=== PATIENT | female | born 1950 | race Caucasian/White ===

== ENCOUNTER 2019-12-30 13:50 | Outpatient (CLI) | payer MEDICARE, SELFPAY ==
--- NOTE | ~2019-12-30 | DEXA_ITS ---
Bone Density Report Name: Alondra Rose Age: 69 Sex: Female Ethnicity: White Date of : 1950 Indication: osteopenia; height loss; Referring Provider: VIKY COHEN Study: Bone densitometry was performed. Exam Date: December 30, 2019 Accession number: [id number] Bone Density: Region BMD T-score Z-score Classification AP Spine (L1-L4) 0.916 -1.2 0.9 Osteopenia Femoral Neck (Left) 0.628 -2.0 -0.2 Osteopenia Total Hip (Left) 0.788 -1.3 0.3 Osteopenia World Health Organization criteria for BMD impression classify patients as: Normal (T-score at or above -1.0), Osteopenia (T-score between -1.0 and -2.5), or Osteoporosis (T-score at or below -2.5). 10-year Fracture Risk(1): Major Osteoporotic Fracture 12% Hip Fracture 2.2% Reported Risk Factors: [place] (), Neck BMD=0.628, BMI=24.4 (1) FRAX(R) Version 3.08. Fracture probability calculated for an untreated patient. Fracture probability may be lower if the patient has received treatment. Previous Exams: Region Exam Age BMD T-score BMD Change BMD Change Date g/cm2 vs Baseline vs Previous AP Spine(L1-L4) 12/30/2019 69 0.916 -1.2 -0.061(-6.2%)# -0.061(-6.2%)# 06/04/2004 53 0.976 -0.6 Total Hip(Left) 12/30/2019 69 0.788 -1.3 -0.014(-1.7%)# -0.014(-1.7%)# 06/04/2004 53 0.801 -1.2 *Denotes significance at 95% confidence level, LSC for AP Spine = 0.022 g/cm2, LSC for Total Hip = 0.027 g/cm2 Clinical Information Provided by Patient: Patient maximum height was 64 Drinks caffeinated beverages Onset of menses at age 11 Number of children 2 Impression: The patient has low bone mass, based on the Left Femoral Neck T-score. The patient has an estimated ten-year risk of hip fracture of 2.2% and an estimated ten-year risk of major fracture of 12%, based on the WHO FRAX algorithm. No significant bone loss was observed. Discussion: BONE DENSITY IS LOW AT ONE OR MORE SKELETAL SITES. This patient's lowest T-score is low at one or more skeletal sites. It meets the World Health Organization's (WHO) criteria for ?low bone mass? (T-score between -1.0 and -2.5). The patient's 10-year risk of fracture as calculated by FRAX is less than the threshold where pharmacological therapy is recommended by the National Osteoporosis Foundation (NOF). However, all treatment decisions require clinical judgment and consideration of individual patient factors, including patient preferences, comorbidities, previous drug use, risk factors not captured in the FRAX model (e.g., frailty,
== END 2019-12-30 13:51 | disposition home or self-care (01) ==
PROVIDERS: PCP Internal Medicine; Visit Provider Internal Medicine
DX: Z78.0 Asymptomatic menopausal state (principal); M85.88 Other specified disorders of bone density and structure, other site; M85.852 Other specified disorders of bone density and structure, left thigh
CPT/HCPCS: 77080

== ENCOUNTER → 2021-09-08 10:16 | Outpatient (CLI) | payer MEDICARE, SELFPAY ==
--- NOTE | ~2021-09-08 | XR_ITS ---
EXAM: XR shoulder RT min 2V HISTORY: RT SHOULDER PAIN x 4 wks after over use; no known injury COMPARISON: None available FINDINGS: Decreased mineralization. No fracture or dislocation. No lytic or blastic lesion. Minimal AC joint hypertrophy. Subcortical cyst formation in the humeral head. No erosion or periosteal change . Soft tissues within normal limits. IMPRESSION: Osteopenia. No acute fracture or dislocation. Possible rotator cuff pathology. Reviewed, dictated and finalized at location K.
== END ==
PROVIDERS: PCP Internal Medicine; Visit Provider Internal Medicine
DX: M85.811 Other specified disorders of bone density and structure, right shoulder (principal)
CPT/HCPCS: 73030

== ENCOUNTER 2022-09-05 08:19 | Outpatient (CLI) | payer MEDICARE, SELFPAY ==
[2022-09-05 13:29] LABS: Hemoglobin A1C 5.3 % (<5.7)
[2022-09-05 13:34] LABS: Vitamin D 25 Hydroxy 33.4 ng/mL
[2022-09-05 15:30] LABS: Alanine Aminotransferase 30 U/L (6-35); Albumin Level 4.4 g/dL (3.5-5.1); Alkaline Phosphatase 73 U/L (38-126); Anion Gap 5 mmol/L (8-16); Aspartate Amino Transferase 40 U/L (14-36); Bilirubin,Total 0.7 mg/dL (0.2-1.3); Blood Urea Nitrogen 18 mg/dL (7-17); Calcium 8.8 mg/dL (8.4-10.2); Carbon Dioxide 28 mmol/L (22-30); Chloride 106 mmol/L (98-107); Cholesterol 184 mg/dL (0-200); Estimated Glomerular Filt Rate > 60; Glucose 108 mg/dL (65-110); HDL Direct 76 mg/dL; Sodium 139 mmol/L (137-145); Triglycerides 76 mg/dL (<150)
[2022-09-05 15:41] LABS: LDL Cholesterol Direct 77 mg/dL
== END 2022-09-05 08:20 | disposition home or self-care (01) ==
LOC: ANHGOSHLAB 08:21
PROVIDERS: PCP Family Medicine; Visit Provider Family Medicine
DX: Z13.228 Encounter for screening for other metabolic disorders (principal); Z13.29 Encounter for screening for other suspected endocrine disorder; E55.9 Vitamin D deficiency, unspecified; E78.5 Hyperlipidemia, unspecified; R73.01 Impaired fasting glucose
CPT/HCPCS: 36415; 80053; 80061; 82306; 83036; 84443

== ENCOUNTER 2024-04-01 10:17 | Outpatient (CLI) | payer MEDICARE, SELFPAY ==
[2024-04-01 11:14] LABS: Add Urine Microscopic? YES; Appearance Urine Clear (Clear); Bacteria Urine 4+ /hpf; Bilirubin Urine Negative (Negative); Blood Urine Negative (Negative); Color Urine Yellow (Yellow); Glucose Urine UA Negative (Negative); Ketones Urine Negative (Negative); Leukocyte Esterase Ur 2+ LEU/UL (Negative); Nitrate Urine Positive (Negative); Non Pathogenic Casts 0-2; Protein Urine Negative (Negative); RBC Urine 0-2 /hpf (0-2); Specific Grav Ur 1.007 (1.001-1.035); Squamous Epithelial Cell Urine None Seen /hpf (Few); Urobilinogen Urine 0.2 mg/dL (<2.0)
== END 2024-04-01 10:18 | disposition home or self-care (01) ==
LOC: ANHLAB 10:23
PROVIDERS: PCP Internal Medicine; Visit Provider Internal Medicine
DX: N39.0 Urinary tract infection, site not specified (principal); R30.0 Dysuria; R35.0 Frequency of micturition
CPT/HCPCS: 81001; 87077; 87086; 87186

== ENCOUNTER 2024-10-21 05:07 | Emergency (ER) | payer MEDICARE, SELFPAY ==
--- OUTSIDE RECORDS SUMMARY | 2024-10-21 05:09 | XMS_ITS | Clinical Summary ---
Author Organization [facility] Address [address] [place] [address] Care Team Providers Care Sample Hand Name Role Phone Saji Mooney MD Primary Care Provider [phone] Allergies Active Allergy Reactions Criticality Noted Date Comments Latex Rash Medium 04/20/2019 Medications ibuprofen (ADVIL,MOTRIN) 600 mg tablet Take 600 mg by mouth every 6 hours as needed Active simvastatin (ZOCOR) 20 mg tablet 0 9 Active aspirin 81 mg chewable tablet Take by mouth Active fluorouracil (EFUDEX) 5 % cream APPLY A SUFFICIENT AMOUNT TO COVER THE LESIONS IN AFFECTED AREA TOPICALLY BID X 2 WEEKS TO FOREARMS/DORSAL HANDS 0 9 Active Active Problems No known active problems Family History Medical History Relation Name Comments Heart disease Father Family history of cardiac disorder - (Added by TW Conv) Kidney disease Father Family histor y of kidney disease - (Added by TW Conv) Heart disease Mother Family history of cardiac disorder - (Added by TW Conv) Relation Name Status Comments Father Mother Social History Tobacco Use Types Packs/Day Years Used Date Smoking Tobacco: Never Smokeless Tobacco: Never Personal Safety Answer Date Recorded Getting School Help Needed Not on file 08/01 Comments No Sex and Gender Information Value Date Recorded Sex Assigned at Not on file Legal Sex Female 3:27 PM HOME COMPANION Gender Identity Not on file Sexual Orientation Not on file Obstetrics History Para Term AB IAB SAB Ectopic Multiple Livin g Live Births 2 2 2 Date Outcome GA Total Labor Labor/2nd/3rd Weight Sex Type Anes PTL Latonia A1 A5 Name Clin Term Term Last Filed Vital Signs Vital Sign Reading Time Taken Comments Blood Pressure - - Pulse - - Temperature - - Respiratory Rate - - Oxygen Saturation - - Inhaled Oxygen Concentration - - Weight 61.2 kg (135 lb) 05/09/2020 7:57 AM HOME COMPANION Height 161.3 cm (5' 3.5) 05/09/2020 7:57 AM HOME COMPANION Body Mass Index 23.54 05/09/2020 7:57 AM HOME COMPANION Plan of Treatment Not on file Insurance MEDICARE ADVANTAGE MEDICARE ADVANTAGE [employer] MEDICARE Care Teams Sample Hand Relationship Specialty Start Date End Date Saji Mooney MD [address] [place] [address] PCP - General Internal Medicine 04/20/19
--- OUTSIDE RECORDS SUMMARY | 2024-10-21 05:09 | XMS_ITS | Encounter Summary ---
Author Organization [facility] Address [address] [place] [address] Care Team Providers Care Paperboard Boxes Estimator Name Role Phone Ab Weiss DO Primary Care Provider [phone] Encounter Details Date Type Department Care Team (Latest Contact Info) Description 10/25/2005 Outpatient Historical [facility] Cochran, Tony Red MD NO ADDRESS ON FILE Diarrhea (Primary Dx) Social History Tobacco Use Types Packs/Day Years Used Date Smoking Tobacco: Never Assessed Comments Unknown Sex and Gender Information Value Date Recorded Sex Assigned at Female 05/03/2024 8:25 AM HEALTHCARE RISK CONTROL CONSULTANT Legal Sex Female 3:31 AM HEALTHCARE RISK CONTROL CONSULTANT Gender Identity Female 05/03/2024 8:25 AM HEALTHCARE RISK CONTROL CONSULTANT Sexual Orientation Not on file documented as of this encounter Plan of Treatment Not on file documented as of this encounter Procedures Procedure Name Priority Date/Time Associated Diagnosis Comments CBC WITH DIFFERENTIAL Routine 10/25/2005 11:01 AM CDT CBC WITH DIFFERENTIAL Routine 10/25/2005 11:01 AM CDT URINALYSIS W/REFLEX MICROSCOPIC Routine 10/25/2005 11:01 AM CDT SEDIMENTATION RATE Routine 10/25/2005 11 :01 AM CDT TSH Routine 10/25/2005 11:01 AM CDT LIPID PANEL Routine 10/25/2005 11:01 AM CDT COMPREHENSIVE METABOLIC PANEL Routine 10/25/2005 11:01 AM CDT documented in this encounter Results * (ABNORMAL) URINALYSIS (10/25/2005 11:01 AM CDT) COLOR UA Yellow INTERFACE SYSTEM CLARITY UA Slt. Cloudy(A) Clear INTERFACE SYSTEM SPECIFIC GRAVITY UA 1.015 1.001 - 1.035 INTERFACE SYSTEM PH UA 7.0 5.0 - 8.0 INTERFACE SYSTEM LEUKOCYTE ESTERASE UA Negative Negative INTERFACE SYSTEM NITRITE UA Negative Negative INTERFACE SYSTEM PROTEIN UA Negative Negative INTERFACE SYSTEM GLUCOSE UA Negative Negative INTERFACE SYSTEM KETONES UA Negative Negative INTERFACE SYSTEM UROBILINOGEN UA <1 <=1 mg/dL INTE RFACE SYSTEM BILIRUBIN UA Negative Negative INTERFA CE SYSTEM BLOOD UA Negative Negative INTERFACE SYSTEM WBC UA 1 0 - 5 /HPF INTERFACE SYSTEM RBC UA <1 0 - 4 /HPF INTERFACE SYSTEM BACTERIA UA 1+(A) None Seen /HPF INTERFACE SYSTEM EPITHELIAL CELLS, URINE 2-5 /HPF INTERFACE SYSTEM AMORPHOUS CRYSTAL Rare /HPF INTERFACE SYSTEM 10/25/2005 11:0 1 AM CDT us Tony Cochran MD URINE ORDERABLES Final Res ult INTERFACE SYSTEM Refer to clinic/hospital department * CBC WITH DIFFERENTIAL (10/25/2005 11:01 AM CDT) NEUTROPHILS 61 45 - 70 % INTERFAC E SYSTEM LYMPHOCYTES 30 16 - 45 % INTERFAC E SYSTEM MONOCYTES 6 3 - 13 % INTERFACE SYSTEM EOSINOPHILS 2 0 - 7 % INTERFAC E SYSTEM BASOPHILS 1 0 - 2 % INTERFACE SYSTEM NEUTROPHIL ABSOLUTE 3.18 1.90 - 7.00 K/uL INTERFACE SYSTEM LYMPHOCYTE ABSOLUTE 1.54 0.70 - 4.50 K/uL INTERFACE SYSTEM MONOCYTE ABSOLUTE 0.33 0.10 - 1.30 K/uL INTERFACE SYSTEM EOSINOPHIL ABSOLUTE 0.10 0.00 - 0.70 K/uL INTERFACE SYSTEM BASOPHILS ABSOLUTE 0.03 0.00 - 0.20 K/uL INTERFACE SYSTEM 10/25/2005 11:0 1 AM CDT Tony Cochran MD HEMATOLOGY ORDERABLES Mechelle l Result Performing Organization Address [facility] Phone Number INTERFACE SYSTEM Refer to clinic/hospital department * CBC WITH DIFFERENTIAL (10/25/2005 11:01 AM CDT) WBC 5.2 4.0 - 9.8 K/uL INTERFACE SYSTEM RBC 4.57 3.90 - 4.90 M/uL INTERFACE SYSTEM HEMOGLOBIN 14.3 11.8 - 14.8 g/dL INTERFACE SYSTEM HEMATOCRIT 42.2 35.5 - 44.0 % INTERFACE SYSTEM MCV 92.3 82.0 - 99.0 fL INTERFACE SYSTEM MCH 31.3 27.2 - 32.6 pg INTERFACE SYSTEM MCHC 33.9 31.5 - 35.5 % INTERFACE SYSTEM RDW 12.8 11.5 - 14.5 % INTERFACE SYSTEM RDW-STDEV 43.0 37.1 - 48.7 fL INTERFACE SYSTEM PLATELETS 234 140 - 350 K/uL INTERFACE SYSTEM MPV 10.7 9.3 - 12.4 fL INTERFACE SYSTEM 10/25/2005 11:0 1 AM CDT us Tony Cochran MD HEMATOLOGY ORDERABLES Mechelle l Result Performing Organization Address [facility] Phone Number INTERFACE SYSTEM Refer to clinic/hospital department * TSH (10/25/2005 11:01 AM CDT) TSH 1.43 0.27 - 4.20 uU/mL INTERFACE SYSTEM 10/25/2005 11:0 1 AM CDT Tony Cochran MD CHEMISTRY ORDERABLES Final Result Performing Organization Address [facility] Phone Number INTERFACE SYSTEM Refer to clinic/hospital department * SEDIMENTATION RATE (10/25/2005 11:01 AM CDT) ESR (SEDIMENTATION RATE) 6 0 - 30 mm/hr INTERFACE SYSTEM 10/25/2005 11:0 1 AM CDT us Tony Cochran MD HEMATOLOGY ORDERABLES Mechelle l Result INTERFACE SYSTEM Refer to clinic/hospital department * (ABNORMAL) LIPID PANEL (10/25/2005 11:01 AM CDT) CHOLESTEROL 207(H) 100 - 199 mg/dL INTERFACE SYSTEM TRIGLYCERIDE 51 10 - 149 mg/dL INTERFACE SYSTEM HDL 89(H) 40 - 59 mg/dL INTERFACE SYSTEM CHOL/HDL RATIO 2.3 2.0 - 5.0 INTER FACE SYSTEM LDL CALCULATED 108(H) <=99 mg/dL INTERFACE SYSTEM LIPID PANEL COMMENT See Below INTERFACE SYSTEM Comment: The adult ATP and pediatric NCEP classifications for lipids are available on the [facility] Intranet at: [email or web address] Select: Lab Policies and Procedures Select: Reference Ranges - Lipids 10/25/2005 11:0 1 AM CDT Tony Cochran MD CHEMISTRY ORDERABLES Final Result INTERFACE SYSTEM Refer to clinic/hospital department * COMPREHENSIVE METABOLIC PANEL (10/25/2005 11:01 AM CDT) GLUCOSE 96 65 - 99 mg/dL INTERFACE SYSTEM Comment:Note: Effective October 01, 2005, reference range now reflects a fasting st ate. CREATININE 0.7 0.4 - 1.2 mg/dL INTERFACE SYSTEM CALCIUM 8.9 8.6 - 10.2 mg/dL INTERFACE SYSTEM ALKALINE PHOSPHATASE 62 35 - 104 U/L INTERFACE SYSTEM AST 19 12 - 32 U/L INTERFACE SYSTEM ALT 13 0 - 31 U/L INTERFACE SYSTEM TOTAL PROTEIN 7.1 6.3 - 8.6 g/dL INTERFACE SYSTEM ALBUMIN 4.7 3.4 - 4.8 g/dL INTERFACE SYSTEM BILIRUBIN TOTAL 0.3 0.2 - 1.0 mg/dL INTERFACE SYSTEM BUN 16 6 - 20 mg/dL INTERFACE SYSTEM SODIUM 141 135 - 145 mmol/L INTERFACE SYSTEM POTASSIUM 4.0 3.5 - 4.9 mmol/L INTERFACE SYSTEM CHLORIDE 104 96 - 108 mmol/L INTERFACE SYSTEM CO2 29 22 - 30 mmol/L INTERFACE SYSTEM 10/25/2005 11:0 1 AM CDT us Tony Cochran MD CHEMISTRY ORDERABLES Final Result INTERFACE SYSTEM Refer to clinic/hospital department documented in this encounter Visit Diagnoses Diagnosis Diarrhea- Primary documented in this encounter Care Teams Paperboard Boxes Estimator Relationship Specialty Start Date End Date Ab Weiss DO [address] [address] PCP - General Family Practice 01/14/22 documented as of this encounter
--- OUTSIDE RECORDS SUMMARY | 2024-10-21 05:09 | XMS_ITS | Data Portability ---
Author Organization [facility], Telehealth Address [address], [address] [place] [address] Care Team Providers Care Estate Planning Paralegal Name Role Phone PAOLAPAULRADHA Primary Care Provider [phone] Assessment Encounter Date Assessment Date Assessment LastModified by Organization Details LastModified Time 04/20/2019 04/20/2019 Inflamed and crusted SK, L medial cheek improved with residual present LN x 1 rec call/rtc if persists after LN postinflammatory erythematous macules, karen forearms/dorsal hands reassurance part of healing process rec vaseline or aquaphor discussed unclear if healing area or persist AK L proximal forearm rec allow to heal over next few weeks if persists L prox forearm-rec repeat efudex cream 5% BID x 2 wks fbse summer 2019 Not available 04/25/2019 16:51:37 01/04/2020 01/04/2020 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 cryo therapy x 1 sites treated: R dorsal hand discussed bilateral forearms clear-no additional treatment with efudex cream needed at this time. benign nevi-not suspicious fbse 1 yr rtc shave bx R medial dorsal foot Not available 01/08/2020 23:10:02 01/11/2020 01/11/2020 neoplasm - biopsy site: R medial foot ddx: shave bx Not available 01/11/2020 10:43:19 02/18/2022 02/18/2022 Inflamed and crusted SK favored, discussed less likely SCC L anterior lower leg Recommend treatment with LN and call/rtc if persists in [address] x 1 Actinic keratoses - precancerous diagnosis reviewed. cryo therapy x 3 sites treated: R dorsal hand Seborrheic keratoses - diagnosis reviewed. Pt reassured. Discussed no treatment needed. Benign nevi-discussed not suspicious fbse 1 yr Photoprotection discussed. Use of a broad-spectrum sunscreen SPF 30 or higher recommended. Not available 02/24/2022 21:38:37 08/04/2023 08/04/2023 Superficial injury of skin, crown of scalp no evidence of infection discussed healing site after LN treatment and topical 5FU cream per outside cracker dough mixer recommend use of Vaseline or Aquaphor qd until healed discussed I do not feel biopsy is needed with healing site from recent treatments recommend allow to heal and call/rtc if persists in 4 weeks Seborrheic keratoses - diagnosis reviewed. Pt reassured. Discussed no treatment needed. Seborrheic dermatitis, scalp-flaring Discussed diagnosis and treatment Recommend ketoconazole 2% shampoo 2x/week in scalp Actinic keratosis - precancerous diagnosis reviewed. cryo therapy x 1 sites treated: L forearm recommend fbse every 6 months-pt notes she is having fbse regularly with [place] cracker dough mixer. tank Not available 08/10/2023 23:05:55 Plan of Treatment Reminders Order Date Submit Date Provider Last Modified By Organization Details Last Modified Time Details Appointments None recorded. Lab pathology, skin 2019 020 [facility], [address], [place], [address], 0 10:45:18 pathology, skin 2019 020 [facility] [place], [address], 0 10:40:42 Referral None recorded. Procedures None recorded. Surgeries None recorded. Imaging None recorded. Medication Orders ketoconazo le 2 % shampoo 2023 024 [facility] #[id number], [address], [place], [id number], 4 13:46:38 Keflex 500 mg capsule 2019 020 [email or web address] [facility] #[id number], [address], [place], [id number], 2 16:30:04 Patient TargetsNo targets recorded. Patient InstructionsNo instructions recorded. Reason for Referral None Reported. Results Created Date Observation Date Name Description Value Unit Range Abnormal Flag Note LastModifiedBy Organization Detail LastModifiedTime Result Notes None recorded. Problems Name Problem SNOMED Code Status Onset Date Resolution Date Notes Provider Name and Address Organization Details Recorded Time Basal cell carcinoma of skin 163099424 Active 02/2022 R medial inferior eyelid-Hol ds Alondra Madison MD [address] [place] [address], [address], [address], HOLLI Madison MD 4 13:36:35 Squamous cell carcinoma of skin 889160211 Active 06/2023 at least SCCIS R medial distal pretibital region-Hru za Alondra Madison MD [address] [place] [address], [address] [address], [place], [address], HOLLI Madison MD 4 13:40:48 Seborrheic dermatitis 36896392 Active 2023 Alondra Madison MD [address] [place] [address], [address] [address], [place], [address], HOLLI Madison MD 4 13:47:18 Actinic keratosis 170077002 Active 2016 Alondra Madison MD [address] [place] [address], [address], [address], HOLLI Madison MD 7 23:22:24 Herpes simplex 75032568 Active 2016 Alondra Madison MD [address] [place] [address], [address], [address], HOLLI Madison MD 7 16:26:03 Problem Notes None recorded. Procedures Surgical History Date Name Laterality Status Provider Name and Address Organization Details Recorded Time 4 Cryosurgery aks completed Alondra Madison MD [address] [facility], [address], [place], [address], HOLLI Madison MD 08/10/2023 23:06:02 2 Cryosurgery aks completed Alondra Madison MD [address] [place] [address], [facility] [address], [place], [address], HOLLI Madison MD 02/24/2022 21:38:27 2 Cryosurgery benign lesions 1 completed Alondra Madison MD [address] [place] [address], [facility] [address], [place], [address], HOLLI Madison MD 02/24/2022 21:38:13 0 Shave Biopsy single completed Fabio Madison MD 01/11/2020 10:46:49 0 Cryosurgery aks completed Alondra Madison MD [address] [place] [address], [address], [place], [address], HOLLI Madison MD 01/08/2020 23:09:53 0 Shave Biopsy single completed Loreto Madison MD 01/04/2020 10:46:25 9 Cryosurgery benign lesions 1 completed Alondra Madison MD [address] [place] [address], [address], [place], [address], HOLLI Madison MD 04/25/2019 16:51:29 9 Cryosurgery benign lesions 1 completed Alondra Madison MD [address] [place] [address], [address] [address], [place], [address], HOLLI Madison MD 03/14/2019 18:26:31 7 Biopsy completed Alondra Madison MD [address] [place] [address], [address] [address], [place], [address], HOLLI Madison MD 03/29/2017 19:10:54 7 Cryosurgery aks completed Alondra Madison MD [address] [place] [address], [address], [place], [address], HOLLI Madsion MD 03/29/2017 19:10:01 7 Cryosurgery benign lesions 1 completed Alondra Madison MD [address] [place] [address], [address], [place], [address], HOLLI Madison MD 03/29/2017 19:10:35 Imaging Results None recorded. Procedure Notes None recorded. Medical Equipment None Reported. Allergies Allergen ID Allergen Name Allergen Category Reaction Reaction Severity Criticality Documentation Date Start Date Code Code System Note Provider Name and Address Organization Details Recorded Time 1611 latex environme nt,medica tion Not available Not available Not available 02/04/2017 60233 91 RxNorm HOLLI Pope MD 7 12:56:26 Medications Name Sig Start Date Stop Date Status Note LastModified by Organization Details LastModified Time amoxicillin 500 mg capsule TK FOUR CS PO 1 HOUR B DAPP 08/03 completed Not Available Not Available Not Available dicloxacill in 500 mg capsule active Not Available Not Available Not Available ketoconazol e 2 % shampoo APPLY TO THE AFFECTED AREA(S), LATHER, LEAVE IN PLACE FOR 5 MINUTES, AND THEN RINSE OFF WITH WATER BY TOPICAL ROUTE ONCE DAILY in the scalp 2-3x/week active Not Available Not Available No t Available azithromyci n 250 mg tablet 02/04 completed Not Available Not Available Not Available ofloxacin 0.3 % eye drops 01/03 completed Not Available Not Available Not Available valacyclovi r 1 gram tablet TAKE 1 TABLET BY MOUTH TWICE DAILY active Not Available Not Available No t Available fluorouraci l 5 % topical cream TO THE AFFECTED AREA OF SCALP TWICE DAILY FOR 2 TO 3 WEEKS active Not Available Not Available No t Available simvastatin 10 mg tablet TAKE 1 TABLET BY MOUTH DAILY active Not Available Not Available No t Available alclometaso ne 0.05 % topical cream 01/03 completed Not Available Not Available Not Available fluocinonid e 0.05 % topical ointment active Not Available Not Available Not Available hydrocodone 10 mg-acetamin ophen 325 mg tablet 02/04 completed Not Available Not Available Not Available omeprazole 40 mg capsule,del ayed release TAKE 1 CAPSULE BY MOUTH DAILY active Not Available Not Available No t Available tramadol 50 mg tablet 03/11 completed Not Available Not Available Not Available amoxicillin 500 mg tablet 01/03 completed Not Available Not Available Not Available temazepam 7.5 mg capsule 02/04 completed Not Available Not Available Not Available alprazolam 0.25 mg tablet TAKE 1/2 TABLET BY MOUTH TWICE DAILY NEEDED FOR ANXIETY 08/03 completed Not Available Not Available Not Available cephalexin 500 mg capsule 4 capsules po x 1 to take 30 min prior to appt for skin biopsy 02/18 completed Not Available Not Available Not Available simvastatin 20 mg tablet 01/03 completed Not Available Not Available Not Available acyclovir 5 % topical ointment DIRECTED ON BOTTLE active Not Available Not Available No t Available mupirocin 2 % topical ointment APPLY A SMALL AMOUNT TO THE AFFECTED AREA BY TOPICAL ROUTE 3 TIMES PER DAY x 2 wks on the back 01/03 completed Not Available Not Available Not Available Transderm-S type copyist 1 mg over 3 days transdermal patch 01/03 completed Not Available Not Available Not Available lorazepam 1 mg tablet 02/04 completed Not Available Not Available Not Available diazepam 10 mg tablet 02/04 completed Not Available Not Available Not Available methylpredn isolone 4 mg tablets in a dose pack 03/11 completed Not Available Not Available Not Available fluocinonid e 0.05 % topical cream APPLY TO THE AFFECTED AREA(S) BY TOPICAL ROUTE 2 TIMES PER DAY x 2 wks L dorsal foot 01/03 completed Not Available Not Available Not Available tobramycin 0.3 %-dexametha sone 0.1 % eye drops,suspe nsion 08/03 completed Not Available Not Available Not Available oxycodone 5 mg tablet 02/18 completed Not Available Not Available Not Available Pneumovax-2 3 25 mcg/0.5 mL injection syringe 01/03 completed Not Available Not Available Not Available acyclovir 5 % topical cream APPLY TO THE AFFECTED AREA 5 TIMES A DAY FOR 5 DAYS SOON SYMPTOMS APPEAR active Not Available Not Available No t Available Premarin 0.625 mg/gram vaginal cream INSERT 1 GRAM VAGINALLY DAILY AT BEDTIME 08/03 completed Not Available Not Available Not Available nitrofurant oin monohydrate /macrocryst als 100 mg capsule active Not Available Not Available Not Available Boostrix Tdap 2.5 Lf unit-8 mcg-5 Lf/0.5 mL intramuscul ar syringe 03/11 completed Not Available Not Available Not Available Baby Aspirin 02/18 completed Not Available Not Available Not Available ProAir HFA 90 mcg/actuati on aerosol inhaler 03/11 completed Not Available Not Available Not Available estradiol 10 mcg vaginal tablet 01/03 completed Not Available Not Available Not Available Fluzone High-Dose 8731-1631 (PF) 180 mcg/0.5 mL intramuscul ar syringe 02/04 completed Not Available Not Available Not Available Fluzone High-Dose 9996-4749 (PF) 180 mcg/0.5 mL intramuscul ar syringe 03/11 completed Not Available Not Available Not Available Shingrix (PF) 50 mcg/0.5 mL intramuscul ar suspension, kit 03/11 completed Not Available Not Available Not Available Fluzone High-Dose 6899-1351 (PF) 180 mcg/0.5 mL intramuscul ar syringe 03/11 completed Not Available Not Available Not Available Fluad 2018- 65yr up(PF)45 mcg(15 mcgx3)/0.5 mL intramuscul ar syringe 03/11 completed Not Available Not Available Not Available Vitals Date Recorded Body temperature Provider Name a nd Address Organization Details Last Updated DateTime 01/04/2020 98.1 [degF] [facility] 01/04/2020 10:09:33 Social History Question Answer Notes LastModified by Organizat ion Details LastModified Time Tobacco Smoking Status Never Smoker HOLLI Pope MD 02/04/2017 12:55:15 In The 14 Days Before Symptom Onset, Have You Had Close Contact With A Laboratory-confir med COVID-19 While That Case Was Ill? No Information not available 01/04/2020 In The 14 Days Before Symptom Onset, Have You Had Close Contact With A Person Who Is Under Investigation For COVID-19 While That Person Was Ill? No Information not available 01/04/2020 Have You Been To An Area Known To Be High Risk For COVID-19? No Information not available 01/04/2020 Sunscreen Use Routinely Yes [email or web address] Information not available 02/18/2022 Sun Exposure Frequent [email or web address] Information not available 02/18/2022 Does Patient Have Any Fever, Cough, Sore Throat Or New Shortness Of Breath? No Information not available 01/04/2020 Tanning Bed Exposure No Information not available 02/18/2022 What Was The Date Of Your Most Recent Tobacco Screening? 02/18/2022 [email or web address] Information not available 02/18/2022 Sun Exposure Frequent Information not available 02/04/2017 Do You Use Sunscreen Routinely? Yes Information not available 02/04/2017 Tanning Bed Exposure No 20 Years Ago Information not available 02/04/2017 Sex: Unknown Functional Status Question Answer Note LastModified by Organization D etails LastModified Time What is your level of alcohol consumption? Moderate Information not available 02/04/2017 Mental Status None recorded. Family History Relationship Description Onset Age of this Age Resolved Age Notes LastModified by Organization Details LastModified Time Brother Malignant neoplasm of skin Not available 2016 12:54:58 Brother Malignant neoplasm of brain Not available 2016 12:55:04 Medical History Condition Response Diabetes N Bleeding Disorder N Arthritis Y Hyperthyroidism N Defibrillator N Cancer N Stroke N Hypothyroidism N Asthma N Lupus N HIV/AIDS N Pacemaker N Anemia N Psoriasis N Hepatitis N Heart Disease N Hypertension N Gynecological HistoryNo gynecological history recorded. Obstetrics History GPAL:G 0 P 0 0 0 0 Past Encounters Encounter ID Performer Location Encounter Start Date Encounter Closed Date Diagnosis/Indication Diagnosis SNOMED-CT Code Diagnosis ICD10 Code Diagnosis Note [id number] Alondra Madison MD Main Office [address] [place] [address] 02/04/2017 11:47:17 02/04/2017 13:32:10 Neoplasm of uncertain behavior of skin 17130594 D48.5 Senile hyperkeratosis 39 9798475 L82.1 [id number] Alondra Madison MD Main Office [address] [place] [phone] 03/25/2017 11:56:11 03/25/2017 12:38:44 Neoplasm of uncertain behavior of skin 83827330 D48.5 Actinic keratosis 555393 007 L57.0 Melanocyti c nevus of trunk 502560505 D22.5 Melanocyti c nevus of skin of thigh 664859827 D22.72 [id number] Alondra Madison MD Main Office [address] [place] [phone] 04/07/2017 14:58:39 04/07/2017 16:59:39 Infection of skin 227929359 L08.9 Allergic c ontact dermatitis 128463654 L23.9 [id number] Alondra Madisno MD Main Office [address] [place] [address] 03/11/2019 11:04:27 03/11/2019 12:20:22 Inflamed seborrheic keratosis 425144838 L82.0 Actinic keratosis 007 L57.0 Insect bit e, nonvenomous, of foot 910877319 S90.862A Telangiect kenisha of skin of face 595215952 I78.1 [id number] Alondra Madison MD Main Office [address] [place] [id number] 04/20/2019 13:59:44 04/20/2019 15:21:34 Inflamed seborrheic keratosis 062641401 L82.0 Postinflam matory skin pigmentation change 15705098 L81.8 [id number] Alondra Madison MD Main Office [address] [place] [address] 01/04/2020 09:48:11 01/04/2020 10:44:22 Neoplasm of uncertain behavior of skin 84369395 D48.5 Actinic keratosis 076284 007 L57.0 Inflamed s eborrheic keratosis 028178073 L82.0 Melanocyti c nevus of trunk 234553961 D22.5 [id number] Alondra Madison MD Main Office [address] [place] [id number] 01/11/2020 10:14:50 01/11/2020 10:46:30 Neoplasm of uncertain behavior of skin 97514210 D48.5 [id number] Alondra Madison MD Main Office [address] [place] [address] 02/18/2022 15:55:23 02/18/2022 16:56:59 Inflamed seborrheic keratosis 174567474 L82.0 Actinic keratosis 769312 007 L57.0 Senile hyperkeratosis 39 9390113 L82.1 Melanocyti c nevus of trunk 084128116 D22.5 [id number] Alondra Madison MD Main Office [address] [address] 08/04/2023 12:15:40 08/04/2023 13:20:38 Seborrheic dermatitis 71140912 L21.8 Superficia l injury of scalp 464541123 S00.00XA Seborrheic keratosis 394 891200 L82.1 Actinic keratosis 037859 007 L57.0 Health Concerns Section Related Observation LastModified by Organization Detai ls LastModified Time None Recorded Concern Status LastModified by Organization Details LastModified Time None Recorded Advance Directives Directive None Recorded Payers Encounter Date Sequence Insurance Name Policy Number Policy Gibbs Covered Member ID Gibbs Member ID Guarantor Name 04/20/2019 1 [facility] (MEDICARE REPLACEMENT/ ADVANTAGE - PPO) [id number] Alondra Rose [id number] Alondra Rose 01/04/2020 1 [facility] (MEDICARE REPLACEMENT/ ADVANTAGE - PPO) [id number] Alondra Rose [id number] Alondra Rose 01/11/2020 1 [facility] (MEDICARE REPLACEMENT/ ADVANTAGE - PPO) [id number] Alondra Rose [id number] Alondar Rose 02/18/2022 1 [facility] (MEDICARE REPLACEMENT/ ADVANTAGE - PPO) [id number] Alondra Rose [id number] Alondra Rose 08/04/2023 1 [employer] (MEDICARE REPLACEMENT/ ADVANTAGE - PPO) [id number] Alondra Rose [id number] Alondra Rose Notes Date Note Type Note Provider Name and Address Organization Details Recorded Time 04/20/2019 text/html efudex follow up site to treat: forearms/dorsal handsstarted: 03/16/19opped: 03/30/19pt states forearms are kind of blistering--not sure if efudex workedshe did have crusting and in those areas has pink scaly areas also the spot on the L cheek is better after LN but still theregets irritated and picks at the area she notes she did have a fbse last [place] in [place] when she was thereshe is due this summer for next fbse. Alondra Madison MD [address] [place] [address], [address], [place], [address], HOLLI Madison MD 04/25/2019 16:51:56 01/04/2020 text/html COVID-19 marieo l. Pt waited in car prior to appt, called in for visit for checkin and rooming. Patient screening questions performed during call in car: No fever, cough, loss of taste or smell, or shortness of breath. Patient denies current diagnosis or pending testing of COVID-19 or recent exposure to any individual with known or current testing for COVID-19. Patient and staff masked for duration of visit. Full Body Check R chest spotX few weeksPt has picked the area-does not come offNo pain, itching or bleedingNot treating Bilateral arms and handsPt applied Efudex to the area in the pastwould like to know if she should apply again/how do they look no other bleeding spots, changing moles, or sores that don't want to heal. Alondra Madison MD [address] [place] [address], [address], [place], [address], HOLLI Madison MD 01/08/2020 23:10:37 01/11/2020 text/html COVID-19 marieo l. Pt waited in car prior to appt, called in for visit for checkin and rooming. Patient screening questions performed during call in car: No fever, cough, loss of taste or smell, or shortness of breath. Patient denies current diagnosis or pending testing of COVID-19 or recent exposure to any individual with known or current testing for COVID-19. Patient and staff masked for duration of visit. biopsy R medial foottook preop abx at 8:55AM pt would like R midback checkedher has been changing the bandage and she wanted to make sure looks okno known concerns. Alondra Madison MD [address] [place] [address], [address], [place], [address], HOLLI Madison MD 01/12/2020 23:40:12 02/18/2022 text/html COVID-19 protoco l. Patient and any caregivers present screened to confirm no fever, cough, loss of taste or smell, or shortness of breath. Patient and any caregivers deny current diagnosis or pending testing of COVID-19 or recent exposure to any individual with known or current testing for COVID-19. Patient and caregivers masked while in office. full body check spot L anterior lower legx 3 monthsitchy, pt not sure if bug bitenot sore or tendernot treating possible warts R 3rd knuckle and on the R handx 4 weeksno symptomsusing compound w without helprough areas no other bleeding spots, changing moles, or sores that don't want to heal. Alondra Madison MD [address] [place] [address], [address], [place], [address], HOLLI Madison MD 02/24/2022 21:39:31 08/04/2023 text/html Spot check top of headhad LN [place] treated mid-Junealso treated with 5FU cream to the area on the top of the scalp BID x 2 weeks starting 2 [address] LN treatmentcrusted area therewondering if needs a biopsy as she is concerned with the new SCC recently diagnosed in [place] on the R leg whole scalp itchesno current treatmentused otc head and shoulders shampoo years ago spot on chestx [address] by other dermwanted to make sure looks ok back itchesbut unsure of spots but itches at times she also has had precancer areas on the arms in the pastshe would like to have the tops of the hands and arms checked today seeing Dr Zelaya for treatment on the leg SCC Alondra Madison MD [address] [facility], [address], [place], [address], HOLLI Madison MD 08/10/2023 23:07:09 OBGyn Episode No OBEpisode recorded.
--- OUTSIDE RECORDS SUMMARY | 2024-10-21 05:09 | XMS_ITS | Encounter Summary ---
Author Organization [facility] Address [address] [place] [address] Care Team Providers Care Level Vial Marker Name Role Phone Lalit Arzola MD Primary Care Provider [phone] Encounter Details Date Type Department Care Team (Late st Contact Info) Description 10/05/2024 Lab Requisition [facility] - DermPath Lab [address] [facility] [place] [id number] Chelsea Liu DO [address] [facility] [address] [place] [address] Social History Tobacco Use Types Packs/Day Years Used Date Smoking Tobacco: Never Smokeless Tobacco: Never Alcohol Use Standard Drinks/Week Comments Yes 0 (1 standard drink = 0.6 oz pur e alcohol) Comments Unknown Sex and Gender Information Value Date Recorded Sex Assigned at Not on file 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 Gender Identity Not on file Sexual Orientation Not on file documented as of this encounter Plan of Treatment Not on file documented as of this encounter Procedures Procedure Name Priority Date/Time Associated Diagnosis Comments DERMATOPATHOLOGY Routine 10/05/2024 9:50 AM CDT documented in this encounter Results * DERMATOPATHOLOGY (10/05/2024 9:50 AM CDT) Case Report Dermatopathology Report Case: [id number] Authorizing Provider: Chelsea Liu DO Collected: 10/05/2024 09:50 AM Ordering Location: [facility] - Received: 10/06/2024 08:01 AM DermPath Lab Pathologist: Graciela Palma MD Specimens: A) - Skin, right ant LE B) - Skin, left ant LE C) - Skin, left posterior LE 05/22/202 5 3:05 PM CDT DERMATOPATHOLOGY LABORATORY Final Diagnosis Specimen A. SKIN, right ant LE: SQUAMOUS CELL CARCINOMA, WELL DIFFERENTIATED (C44.722) Specimen B. SKIN, left ant LE: SUPERFICIAL (FOCALLY INVASIVE) SQUAMOUS CELL CARCINOMA ARISING IN AN ACTINIC KERATOSIS (C44.729) Specimen C. SKIN, left posterior LE: HYPERPLASTIC (HYPERTROPHIC) ACTINIC KERATOSIS (L57.0) 5 3:05 PM CDT DERMATOPATHOLOGY LABORATORY at 1505 CDT Clinical History A-C. R/O SCC, Growing, Painful 5 3:05 PM CDT DERMATOPATHOLOGY LABORATORY Gross Description Specimen A: Received is one formalin filled container labeled with the patient's name and designated right ant LE. The specimen consists of a shave biopsy measuring 10x7x1 mm. Jar 0. Specimen B: Received is one formalin filled container labeled with the patient's name and designated left ant LE. The specimen consists of a shave biopsy measuring 10x8x1 mm. Jar 0. Specimen C: Received is one formalin filled container labeled with the patient's name and designated left posterior LE. The specimen consists of a shave biopsy measuring 7x6x1 mm. Jar 0. 5 3:05 PM CDT DERMATOPATHOLOGY LABORATORY Microscopic Description Specimen A. SKIN, right ant LE: Arising in the epidermis and extending into the dermis there are irregularly shaped aggregates of keratinocytes showing evidence of premature cornification. Specimen B. SKIN, left ant LE: Sections reveal parakeratosis, acanthosis and keratinocyte dysmaturation which is most prominent in the lower epidermis. Focal nests are present in the dermis. Specimen C. SKIN, left posterior LE: There is hyperkeratosis alternating with parakeratosis containing serum and neutrophils. There is epidermal hyperplasia with disorderly maturation of keratinocytes with nuclear pleomorphism confined to the lower half of the epidermis. 5 3:05 PM CDT DERMATOPATHOLOGY LABORATORY Disclaimer An external and internal positive and negative controls are appropriate for the histochemical, immunohistochemical and immunofluorescence stain(s) in this case (if any), except where stated explicitly. The performance characteristics of the stain(s) cited in this report were developed and its performance characteristic determined by the Dermatopathology Laboratory at [facility], directed by Dr. Cy Cummings. These tests need not be, and therefore are not, approved by the [place] Food and Drug Administration. The tests are used for clinical purposes. Billing Codes Specimen Charges Stain Charges 26761 [id number] 1 1 1 5 3:05 PM CDT DERMATOPATHOLOGY LABORATORY Embedded Images 3:05 PM CDT DERMATOPATHOLOGY LABORATORY Pathology/Cytology TISSUE SPECIMEN FROM SKIN / Unknown 10/05/2024 9:50 AM CDT 10/06/2024 8:01 AM CDT Miscellaneous samples (specimen) TISSUE SPECIMEN FROM SKIN / Unknown 10/05/2024 9:50 AM CDT 10/06/2024 8:01 AM CDT Miscellaneous samples (specimen) TISSUE SPECIMEN FROM SKIN / Unknown 10/05/2024 9:50 AM CDT 10/06/2024 8:01 AM CDT us Chelsea iLu DO LAB - PATHOLOGY/CYTOLOGY ORDERABLES Final Result DERMATOPATHOLOGY LABORATORY [facility] - Department of Dermatology [facility] [address] [place] [address], [address] [phone] documented in this encounter Visit Diagnoses Not on filedocumented in this encounter Care Teams Level Vial Marker Relationship Specialty Start Date End Date Lalit Arzola MD [address] [place] [address] PCP - General 09/26/08 documented as of this encounter
--- OUTSIDE RECORDS SUMMARY | 2024-10-21 05:09 | XMS_ITS | Clinical Summary ---
Author Organization [facility] Address [address] [place] [address] Phone Care Team Providers Care Gold Assayer Name Role Phone Ab Weiss DO Primary Care Provider [phone] Allergies Active Allergy Reactions Criticality Noted Date Comments Adhesive Rash Low 08/30/2021 Latex Rash Low Medications simvastatin (ZOCOR) 10 mg tablet Take 10 mg by mouth daily at bedtime. 0 Active valACYclovir (VALTREX) 1 gram tablet valacyclovir 1 gram tablet TAKE 1 TABLET BY MOUTH TWICE DAILY Active ALPRAZolam (XANAX) 0.25 mg tablet alprazolam 0.25 mg tablet TAKE 1/2 TABLET BY MOUTH TWICE DAILY NEEDED FOR ANXIETY Active omeprazole (PriLOSEC) 10 mg Capsule, Delayed Release(E.C.) Take 10 mg by mouth daily. Active Active Problems Patient Care Coordination No te Formatting of this note migh t be different from the original. Dr. Weiss address on file incorrect Correct Address: [address] [place] [id number] Problem Noted Date Diagnosed Date S/P laparoscopic hysterectomy 09/20/2021 Family history of celiac disease 11/06/2017 History of right hip replacement 11/06/2017 Hyperglycemia 08/25/2015 Primary osteoarthritis of right hip 08/25/2015 Family history of ischemic heart disease 014 Overview (11/08/2013): Brother and mother experienced MIs in their 50s Osteopenia 11/18/2012 Pure hypercholesterolemia 09/19/2011 Resolved Problems Problem Noted Date Diagnosed Date Resolved Date Depressive disorder, not elsewhere classified 09/19/19 12 11/18/2012 Disorder of bone and cartilage, unspecified 09/19/2011 11/18/2012 Cervical dysplasia 09/02/2011 3 Encounters Date Type Department Care Team Description 10/12/2024 External Device Data [facility] ABSTRACTION Provider, Abstract 10/07/2024 External Device Data [facility] ABSTRACTION Provider, Abstract 10/06/2024 External Device Data [facility] ABSTRACTION Provider, Abstract 10/05/2024 External Device Data [facility] ABSTRACTION Provider, Abstract 08/04/2024 External Device Data [facility] ABSTRACTION Provider, Abstract 07/24/2024 External Device Data [facility] ABSTRACTION Provider, Abstract 07/23/2024 External Device Data [facility] ABSTRACTION Provider, Abstract 07/21/2024 External Device Data [facility] ABSTRACTION Provider, Abstract from Last 3 Months Immunizations Immunization Administration Dates Next Due (ADACEL/BOOSTRIX)(10 YR UP) TDAP VACCINE, 0.5ML, IM 11/17/2018,10/30/2005 (MODERNA)(6-11 YRS PRIMARY S ERIES) COVID-19 VACCINE - EMERGENCY USE AUTHORIZATION,MRNA(PF) 50 MCG/0.5 ML IM SUSPP50 MCG/0.5 ML IM SUSP 03/14/2021 (SHINGRIX)(50 YRS UP) ZOSTER VACCINE RECOMBINANT, 0.5 ML, IM 08/18/2017 (SPIKEVAX) (12 YRS UP PRIMAR Y SERIES) COVID-19 VACCINE - MRNA-1273(PF) 100 MCG/0.5 ML IM SUSP 07/20/2020,06/22/2020 (TENIVAC)(7 YRS UP) TETANUS AND DIPHTHERIA TOXOIDS, ADSORBED (5 LF OF TETANUS TOXOID AND 2 LF OF DIPHTHERIA TOXOID), 0.5ML (PF), IM 08/25/2015 INFLUENZA VACCINE HIGH DOSE QUADRIVALENT 65 YR UP PF IM 02/13/2020 Influenza Seasonal Unspecifi ed Formulation IM 02/10/2021,02/17/2016,02/20/2015,02/07 Influenza Vaccine High Dose 65+ Yrs IM 8 Influenza Vaccine Tri Adjuva nted 65+ PF IM 02/15/2019 PREVNAR (PCV13) pneumococcal 13-valent conjugate Vaccine 02/17/2016 Pneumococcal Polysaccharide Vacc 23-tika IM SCHIP 03/06/2015 Zoster Vaccine Live SQ 02/16/2010 Family History Medical History Relation Name Comments Cancer Brother Mitul Stoner 68 yrs old, Gli oblastoma brain tumor Heart Disease Brother Mitul Stoner Other Brother Mitul Stoner brain tumor - G BM Heart Disease Father Kayden stoner Heart Disease Maternal Grandfather James Stoner No Known Problems Maternal Grandmother Heart Disease Mother Ayana Stoner Diabetes Paternal Grandfather James Stoner No Known Problems Paternal Grandmother Healthy Sister 1 Healthy Sister 2 Healthy Sister 3 Healthy Sister 4 Healthy Sister 5 Healthy Son 1 Healthy Son 2 Breast Cancer Neg Hx Colon Cancer Neg Hx Ovarian Cancer Neg Hx Relation Name Status Comments Brother Mitul Stoner Father Kayden stoner Maternal Grandfather James Stoner Maternal Grandmother Mother Ayana Stoner Paternal Grandfather James Stoner Paternal Grandmother Sister 1 Alive Sister 2 Alive Sister 3 Alive Sister 4 Alive Sister 5 Alive Son 1 Alive Son 2 Alive Social History Tobacco Use Types Packs/Day Years Used Date Smoking Tobacco: Never Smokeless Tobacco: Never Tobacco Cessation:Counseling Given: Not Answered Alcohol Use Standard Drinks/Week Comments Yes 4 (1 standard drink = 0.6 oz pure alcohol) I don t drink alcohol every day. 2-4 over a week, sometimes Feeling Safe Answer Date Recorded Within the last year, have y ou been afraid of your partner or ex-partner? No 10/26/2018 Within the last year, have y ou been humiliated or emotionally abused in other ways by your partner or ex-partner? No Within the last year, have y ou been kicked, hit, slapped, or otherwise physically hurt by your partner or ex-partner? No 10/26/2018 Within the last year, have y ou been raped or forced to have any kind of sexual activity by your partner or ex-partner? No 10/26/2018 Social Connections Answer Date Recorded Frequency of Communication with Friends and Fami ly Not on file 05/25/2019 Frequency of Social Gatherin gs with Friends and Family Not on file 05/25/2019 Attends Voodoo Services Not on file 05/25 Active Member of Clubs or Organizations Not on f ile 05/25/2019 Attends Club or Organization Meetings Not on preet e 05/25/2019 Are you , , di vorced, , never , or living with a partner? Living with partner 05/25/2019 Financial Resource Strain Answer Date R ecorded How hard is it for you to pa y for the very basics like food, housing, medical care, and heating? Not hard at all 10/26/2018 Food Insecurity Answer Date Recorded Within the past 12 months, y ou worried that your food would run out before you got the money to buy more. Never true 10/27/19 19 Within the past 12 months, t he food you bought just didn't last and you didn't have money to get more. Never true 10/26/2018 Transportation Needs Answer Date Record ed In the past 12 months, has l ack of transportation kept you from medical appointments or from getting medications? No 05/25/2019 Lack of Transportation (Non-Medical) Not on file 05/25/2019 Comments No Sex and Gender Information Value Date Recorded Sex Assigned at Female 05/03/2024 8:25 AM PAPER HANGER Legal Sex Female 3:31 AM PAPER HANGER Gender Identity Female 05/03/2024 8:25 AM PAPER HANGER Sexual Orientation Not on file Occupation Industry Job Start Date Job End Date Not on file Not on file Not on file Not on file Last Filed Vital Signs Vital Sign Reading Time Taken Comments Blood Pressure 116/80 04/27/2024 8:49 AM PAPER HANGER Pulse 69 04/27/2024 8:49 AM PAPER HANGER Temperature 35.9 C (96.6 F) 04/27/2024 8:49 AM PAPER HANGER Respiratory Rate 16 09/20/2021 8:00 AM CDT Oxygen Saturation 98% 04/27/2024 8:49 AM PAPER HANGER Inhaled Oxygen Concentration - - Weight 64.5 kg (142 lb 3.2 oz) 04/27/2024 8:49 A M PAPER HANGER Height 160 cm (5' 3) 04/27/2024 8:49 AM PAPER HANGER Body Mass Index 25.19 04/27/2024 8:49 AM PAPER HANGER Plan of Treatment Health Maintenance Due Date Last Done Comments FIT-DNA Q 3 years 1994 FIT/FOBT Q 1 year 1994 Flex Sig/CT Colonography Q 5 years 1994 ZOSTER VACCINE (3 of 3) 10/13/2017 08/18/2017, 02/16 INFLUENZA VACCINE (#1) 2023 , 02/13/2020, 02/15/2019, Additional history exists COVID-19 Vaccine ( - 2023-2 5 season) 2024 03/14/2021, 07/20/2020, 06/22/2020 OSTEOPOROSIS SCREENING 06/26/2024 3, 10/31/2016, 02/28/2014, Additional history exists BREAST CANCER SCREENING 06/30/2024 06/30/19 24, 06/30/2023, 08/07/2021, Additional history exists RSV VACCINE (60+ or ) (1 - 1-dose 75+ series) 2024 COLORECTAL SCREENING 03/27/2026 03/27/2016, 01/03/2006, 01/03/2006 Colorectal Cancer Screening 03/27/2026 DTAP/TDAP/TD VACCINES (4 - T d or Tdap) 11/17/2028 11/17/2018, 08/25/2015, 10/30/2005 PNEUMOCOCCAL VACCINE 50+ YEARS Completed 02/17/2016 , 03/06/2015 Medical Devices Implanted Type Area Beamster Device Identifier Shelf Expiration Date Model / Serial / Lot Sealant Fibrin Vistaseal 10ml Vst10 - [id number] Implanted:Qty: 1 on 09/19/2021 by Hayes Durbin MD at [facility] Sealant N/A: Pelvis [employer] 10/01/2022 VST10 / [id number] / [id number] Hip Replacement Procedures Procedure Name Priority Date/Time Associated Diagnosis Comments XR DEXA BONE DENSITY AXIAL 1 OR MORE SITES Routine 06/26/2022 10:07 AM PAPER HANGER Screening for osteoporosis Menopause MAMMO DIAGNOSTIC UNI LEFT W OR WO CAD Routine 08/07/2021 ENDOSCOPY, COLON, SCREENING Routine 03/27/2016 from Last 3 Months or Most Recently Relevant to Health Maintenance Results * XR DEXA BONE DENSITY AXIAL 1 OR MORE SITES (06/26/2022 10:07 AM PAPER HANGER) Anatomical Region Laterality Modality Digital Radiogra phy 06/26/2022 10:0 8 AM PAPER HANGER Narrative 06/26/2022 10:21 AM PAPER HANGER XR DEXA BONE DENSITY AXIAL 1 OR MORE SITES DATE: 06/26/2022 10:07 AM HISTORY: 71 years old Female with post menopausal symptoms. PROCEDURE: Planar images of the lumbar spine, forearm and hip(s) using a Shoplocal DEXA scanner for bone mineral density determination (BMD). Absolute bone mineral density measurements (in gm/cm^2) are available on the original PACS report. Comparison is made with the prior bone density performed 11/04/2016 FINDINGS: Lumbar Spine (L1-L4) T-score: -0.7 : +3.7% change Left femoral neck T-score: -1.5 : +5.3% change Left Radius 33% T-score: -2.5 : -12% change Comments: None IMPRESSION Osteopenic bone mineral density. STATISTICAL CHANGE: Statistically significant increase in lumbar spine and left femoral neck bone mineral density compared to 10/31/2016. Statistically significant decrease in left radius bone mineral density compared to 10/31/2016 A statistically significant change is defined as a change of greater than 2.5 standard deviations in the least significant difference from the prior study. Least significant differences are defined as follows: Lumbar spine: +/- 0.010 g/cm2 Femoral neck: +/- 0.014 g/cm2 Forearm radius 33%: +/- 0.020 g/cm2 DEFINITIONS: Normal: T-score above -1.0 Osteopenia T-score less than -1.0 and above -2.5 Osteoporosis: T-score < -2.5 FRAX FRACTURE RISK ASSESSMENT: Risk factors: None. 10 Year Probability Of Fracture -Major Osteoporotic: 10.9% -Hip: 1.9% -Comparison population: [place], A major osteoporotic fracture is defined as a fracture of the spine, forearm, hip or shoulder. FOLLOW-UP RECOMMENDATIONS: Patients without high risk factors for osteoporosis: T-score -1.0 to -1.5 - Consider repeat BMD in 5-10 years T-score -1.5 to -2.0 - Consider repeat BMD in 3-5 years T-score -2.0 to - 2.5 - Consider repeat BMD every 2 years Patients on treatment for osteoporosis: 1-2 years after initiation of treatment and every 2 years thereafter Dictated by John Golden DO DICTATION LOCATION: Location 1 - [facility] Procedure Note John Golden DO - 06/26/2022 XR DEXA BONE DENSITY AXIAL 1 OR MORE SITES DATE: 06/26/2022 10:07 AM HISTORY: 71 years old Female with post menopausal symptoms. PROCEDURE: Planar images of the lumbar spine, forearm and hip(s) using a Shoplocal DEXA scanner for bone mineral density determination (BMD). Absolute bone mineral density measurements (in gm/cm^2) are available on the original PACS report. Comparison is made with the prior bone density performed 11/04/2016 FINDINGS: Lumbar Spine (L1-L4) T-score: -0.7 : +3.7% change Left femoral neck T-score: -1.5 : +5.3% change Left Radius 33% T-score: -2.5 : -12% change Comments: None IMPRESSION Osteopenic bone mineral density. STATISTICAL CHANGE: Statistically significant increase in lumbar spine and left femoral neck bone mineral density compared to 10/31/2016. Statistically significant decrease in left radius bone mineral density compared to 10/31/2016 A statistically significant change is defined as a change of greater than 2.5 standard deviations in the least significant difference from the prior study. Least significant differences are defined as follows: Lumbar spine: +/- 0.010 g/cm2 Femoral neck: +/- 0.014 g/cm2 Forearm radius 33%: +/- 0.020 g/cm2 DEFINITIONS: Normal: T-score above -1.0 Osteopenia T-score less than -1.0 and above -2.5 Osteoporosis: T-score < -2.5 FRAX FRACTURE RISK ASSESSMENT: Risk factors: None. 10 Year Probability Of Fracture -Major Osteoporotic: 10.9% -Hip: 1.9% -Comparison population: [place], A major osteoporotic fracture is defined as a fracture of the spine, forearm, hip or shoulder. FOLLOW-UP RECOMMENDATIONS: Patients without high risk factors for osteoporosis: T-score -1.0 to -1.5 - Consider repeat BMD in 5-10 years T-score -1.5 to -2.0 - Consider repeat BMD in 3-5 years T-score -2.0 to - 2.5 - Consider repeat BMD every 2 years Patients on treatment for osteoporosis: 1-2 years after initiation of treatment and every 2 years thereafter Dictated by John Golden DO DICTATION LOCATION: Location 1 - [facility] Charito Moeller DO DIAGNOSTIC IMAGING ORDERABLES F inal Result * MAMMO DIAGNOSTIC UNI LEFT W OR WO CAD (08/07/2021) Anatomical Region Laterality Modality Breast Left Mammography Charito Moeller DO MAMMO ORDERABLES Edited Result - Final * ENDOSCOPY, COLON, SCREENING (03/27/2016) Derrick Shabazz MD GI PROCEDURE ORDERABLES Edite d Result - Final Performing Organization Address City/State/[facility] Co de Phone Number [facility] from Last 3 Months or Most Recently Relevant to Health Maintenance Insurance [employer] PPO MCR RX [employer] RX Member Subscriber Plan / Payer (Ef fective 2015-Present) Name:Alondra Rose Relation to Subscriber:Self Name:Young, Alondra H Payer ID:Not on file Group ID:[id number] Type:RX Medicare Part D Address: [place] Advance Directives For more information, please contact: [phone] * Full Code (Latest Code Status on File) Date Activated Date Inactivated Comments 09/19/2021 12:50 PM 09/20/2021 12:12 PM * Full Code Date Activated Date Inactivated Comments 09/19/2021 7:22 AM 09/19/2021 12:50 PM Care Teams Gold Assayer Relationship Specialty Start Date End Date Ab Weiss DO [address] [address] PCP - General Family Practice 01/14/22
--- OUTSIDE RECORDS SUMMARY | 2024-10-21 05:09 | XMS_ITS | Clinical Summary ---
Author Organization [facility] Address [address] [place] [address] Care Team Providers Care Agency Service Coordinator Name Role Phone Lalit Arzola MD Primary Care Provider [phone] Source Comments [facility],non-owned Affiliates and Associated Physician Practices is amultiple site organization consisting of ambulatory clinics and hospital sitesin [place], [place], [place] and [place]. This disclosure is being madepursuant to the Care Everywhere program and may not contain all information available regarding this patient. Last updated 18.[facility] Active Problems Problem Noted Date Diagnosed Date Actinic keratosis 04/17/2010 Encounters Date Type Department Care Team Description 10/05/2024 Lab Requisition [facility] - DermPath Lab [address] [facility] [address] [place] [address] Chelsea Liu DO from Last 3 Months Family History Medical History Relation Name Comments CVA Father Status: d CVA Mother Status: d Allergy (Severe) Neg Hx Cancer Neg Hx Cancer - Skin, Melanoma Neg Hx Cancer - Skin, Non Melanoma Neg Hx Eczema Neg Hx Hemophilia Neg Hx Psoriasis Neg Hx Rashes/Skin Problems Neg Hx Relation Name Status Comments Father Mother Social History Tobacco Use Types Packs/Day Years Used Date Smoking Tobacco: Never Smokeless Tobacco: Never Alcohol Use Standard Drinks/Week Comments Yes 0 (1 standard drink = 0.6 oz pur e alcohol) Comments Unknown Sex and Gender Information Value Date Recorded Sex Assigned at Not on file 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 Gender Identity Not on file Sexual Orientation Not on file Plan of Treatment Health Maintenance Due Date Last Done Comments BONE DENSITY TESTING 1950 COLOGUARD (AGES 45-75) - COL ON CA SCREENING 1949 COLON MONITORING 1949 COLONOSCOPY - COLON CA SCREENING 1949 CT COLONOGRAPHY - COLON CA SCREENING 1950 Colorectal Cancer Screening 1949 FIT - COLON CA SCREENING 1949 FLEX SIG - COLON CA SCREENING 1949 LIPID TESTING 1949 MAMMOGRAM 1949 HEPATITIS C SCREENING 06/29/1967 DTAP/TDAP/TD VACCINES (1 - Tdap) 1968 PNEUMOCOCCAL VACCINE 50+ (1 of 1 - PCV) 1999 ZOSTER VACCINE (1 of 2) 1999 COVID-19 VACCINE (1 - 2023-2 5 season) 2024 DEPRESSION SCREENING 05/19/2024 MEDICARE AWV CALENDAR YEAR 2024 Respiratory Syncytial Virus (RSV) Vaccine Pt: or over 60 yrs (1 - 1-dose 75+ series) 2024 INFLUENZA VACCINE (Season Ended) 2025 HEPATITIS B VACCINE Aged Out No longe r eligible based on patient's age to complete this topic HIB VACCINE Aged Out No longer eligi ble based on patient's age to complete this topic HPV VACCINE Aged Out No longer eligi ble based on patient's age to complete this topic MENINGOCOCCAL (Group B) VACC INE SHARED DECISION-MAKING Aged Out No longer eligibl e based on patient's age to complete this topic MENINGOCOCCAL GROUPS A/C/Y/W VACCINE Aged Out No longer eligible b ased on patient's age to complete this topic Procedures Procedure Name Priority Date/Time Associated Diagnosis Comments DERMATOPATHOLOGY Routine 10/05/2024 9:50 AM CDT from Last 3 Months Results * DERMATOPATHOLOGY (10/05/2024 9:50 AM CDT) Case Report Dermatopathology Report Case: [id number] Authorizing Provider: Chelsea Liu DO Collected: 10/05/2024 09:50 AM Ordering Location: [facility] - Received: 10/06/2024 08:01 AM DermPath Lab Pathologist: Graciela Palma MD Specimens: A) - Skin, right ant LE B) - Skin, left ant LE C) - Skin, left posterior LE 3:05 PM CDT DERMATOPATHOLOGY LABORATORY Final Diagnosis [...] characteristic determined by the Dermatopathology Laboratory at [facility], directed by Dr. yC Cummings. These tests need not be, and therefore are not, approved by the [place] Food and Drug Administration. The tests are used for clinical purposes. Billing Codes Specimen Charges Stain Charges 07793 64221 75362 1 1 1 5 3:05 PM CDT DERMATOPATHOLOGY LABORATORY Embedded Images 5 3:05 PM CDT DERMATOPATHOLOGY LABORATORY Pathology/Cytology TISSUE SPECIMEN FROM SKIN / Unknown 10/05/2024 9:50 AM CDT 10/06/2024 8:01 AM CDT Miscellaneous samples (specimen) TISSUE SPECIMEN FROM SKIN / Unknown 10/05/2024 9:50 AM CDT 10/06/2024 8:01 AM CDT Miscellaneous samples (specimen) TISSUE SPECIMEN FROM SKIN / Unknown 10/05/2024 9:50 AM CDT 10/06/2024 8:01 AM CDT Chelsea Liu DO LAB - PATHOLOGY/CYTOLOGY ORDERABLES Final Result Performing Organization Address City/State/[facility] Co de Phone Number DERMATOPATHOLOGY LABORATORY [facility] - Department of Dermatology [facility] Specialized Medicine [address] [place] [address], [address] Floor [address] [phone] from Last 3 Months Insurance [employer] MEDICARE ADV Care Teams Agency Service Coordinator Relationship Specialty Start Date End Date Lalit Arzola MD [address] [place] [address] [facility] - General 09/26/08
--- OUTSIDE RECORDS SUMMARY | 2024-10-21 05:09 | XMS_ITS | Encounter Summary ---
Author Organization [facility] Address [address] [place] [address] Care Team Providers Care Brain Picker Name Role Phone Ab Weiss DO Primary Care Provider [phone] Encounter Details Date Type Department Care Team (Late st Contact Info) Description 01/03/2006 Outpatient Historical [facility] Derrick Shabazz MD [address] [place] [address] [place] [address] Diarrhea (Primary Dx) Social History Tobacco Use Types Packs/Day Years Used Date Smoking Tobacco: Never Assessed Comments Unknown Sex and Gender Information Value Date Recorded Sex Assigned at Female 05/03/2024 8:25 AM PIECE GOODS PACKER Legal Sex Female 3:31 AM PIECE GOODS PACKER Gender Identity Female 05/03/2024 8:25 AM PIECE GOODS PACKER Sexual Orientation Not on file documented as of this encounter Plan of Treatment Not on file documented as of this encounter Visit Diagnoses Diagnosis Diarrhea- Primary documented in this encounter Care Teams Brain Picker Relationship Specialty Start Date End Date Ab Weiss DO [address] [address] PCP - General Family Practice 01/14/22 documented as of this encounter
--- OUTSIDE RECORDS SUMMARY | 2024-10-21 05:09 | XMS_ITS | Patient Health Record ---
Author Organization [facility] Address [address] [facility] [address] [place] [address] Care Team Providers Care Supervisor Blood Name Role Phone Sammie MARTIN, Tony Red Primary Care Provider Yesi Derrick Del Real Unavailable [phone] Reason For Referral No Information Problems Problem Type SNOMED Code ICD Code Onset Dates Problem Status W/U Status Risk Notes Problem [id number] Colon cancer screening (Z12.11) Active confirmed Plan Of Treatment No Information Insurance Providers Payer Name Payer Address Payer Phone Subscriber Number Group Number Insured Name Patient Relationship to Insured Coverage Start Date Coverage End Date [facility] Medicare Advantage HMO [address] [address] [place] [address] [phone] [id number] Alondra Rose Self - patient is the insured
--- OUTSIDE RECORDS SUMMARY | 2024-10-21 05:09 | XMS_ITS | Referral Summary ---
Author Organization [facility] Address [address] [place] [address] Care Team Providers Care Ditch Repairer Name Role Phone Saji Mooney MD Primary Care Provider [phone] Allergies Active Allergy Reactions Criticality Noted Date [...] Active Active Problems No known active problems Social History Tobacco Use Types Packs/Day Years Used Date Smoking Tobacco: Never Smokeless Tobacco: Never Personal Safety Answer Date Recorded Getting School Help Needed Not on file 08/01 Comments No Sex and Gender Information Value Date Recorded Sex Assigned at Not on file Legal Sex Female 3:27 PM INSURANCE ACCOUNT ASSISTANT Gender Identity Not on file Sexual Orientation Not on file Last Filed Vital Signs Vital Sign Reading Time Taken Comments Blood Pressure - - Pulse - - Temperature - - Respiratory Rate - - Oxygen Saturation - - Inhaled Oxygen Concentration - - Weight 61.2 kg (135 lb) 05/09/2020 7:57 AM INSURANCE ACCOUNT ASSISTANT Height 161.3 cm (5' 3.5) 05/09/2020 7:57 AM INSURANCE ACCOUNT ASSISTANT Body Mass Index 23.54 05/09/2020 7:57 AM INSURANCE ACCOUNT ASSISTANT Plan of Treatment Not on file Insurance [facility] MEDICARE ADVANTAGE [facility] MEDICARE ADVANTAGE [facility] MED[facility] Care Teams Ditch Repairer Relationship Specialty Start Date End Date Saji Mooney MD [address] [place] [address] PCP - General Internal Medicine 04/20/19
[2024-10-21 05:13] VITALS: BP 140/76; PULSE 77; RESP 18; TEMP 36.9; O2SAT 95
--- NOTE | 2024-10-21 05:22 | ED_ITS ---
HPI - Extremity Injury (Lower) General Chief Complaint: Extremity Injury, Lower Stated Complaint: post procedure bleed Time Seen by Provider: 10/21/24 05:22 History of Present Illness HPI Narrative: 74-year-old female presenting to the emergency department for evaluation of a wound on her leg that was from a Mohs procedure done yesterday with her manager inventory management. Patient states she went home from the manager inventory management procedure without any difficulty after being wrapped in the office but woke up noticing that she was still oozing some blood from her right wound. She states she has had previous Mohs procedures without any bleeding. She takes a baby aspirin but no other anticoagulants. No trauma or injury. Endorses 1/10 pain in her right cortés. Has not unwrapped her bandages. Related Data Home Medications ?Medication ?Instructions ?Recorded ?Confirmed ?Last Taken ?Type cholecalciferol (vitamin D3) 50 50 mcg PO DAILY 10/28/23 06/30/24 Unknown History mcg (2,000 unit) tablet aspirin 81 mg tablet,delayed 81 mg PO DAILY 11/18/23 06/30/24 Unknown History release (Adult Low Dose Aspirin) Allergies Allergy/AdvReac Type Severity Reaction Status Date / Time latex Allergy Unknown Itching Verified 10/21/24 05:24 Review of Systems Review of Systems: As reviewed above in HPI [facility] Past Medical History Medical History Encounter for routine adult health examination without abnormal findings Frequent UTI Insect bite Facial lesion Vitamin D deficiency Light headedness Encounter for Medicare annual wellness exam UTI (urinary tract infection) Poor concentration On senior living drug therapy Encounter to establish care BMI 25.0-25.9,adult Screening for metabolic disorder Hyperlipidemia Surgical History Surgical History History of hysterectomy (~09/2021) H/O section History of right hip replacement Family History Family History Mother Acute myocardial infarction, Onset Age: 74 Myocardial infarction Grandparent Acute myocardial infarction Father Acute myocardial infarction, Onset Age: 72 AAA (abdominal aortic aneurysm) Sibling Glioblastoma Acute myocardial infarction Social History Social History Smoking status: Never smoker Second hand tobacco smoke exposure: No Alcohol intake: current Drinks per week: 5 Substance use: never Lack of Transportation: No Lack of Food: Never True Current Housing: I Have Housing Concerned About Future Housing: No Difficulty Paying Gas/Electric Bills: No Difficulty Paying for Meds: No Currently Unemployed: No Education: Master's Degree or Higher Difficulty w/ Childcare or Family Care: No Occupation/Education: retired Gender identity (if verbalized by the patient): Female Sexual Orientation (if Verbalized by the Patient): Straight or Heterosexual Agree to blood products: Yes Exam Narrative: GENERAL: [Well-appearing, well-nourished, and in no acute distress.] HEAD: [Normocephalic, atraumatic.] EYES: [PERRLA and EOMI.] ENT: Nares clear, no rhinorrhea or epistaxis. Mucous membranes moist. NECK: Supple. CHEST: [Clear to auscultation. No respiratory distress.] HEART: [Regular rate and rhythm]. No murmur heard. [Normal peripheral pulses.] ABDOMEN: [Soft, nondistended], [nontender], [No rigidity or guarding] EXTREMITIES: Normal range of motion. [No edema.] SKIN: There is a circular 1.0 cm lesion to the anterior right cortés distally that was from patient's Mohs procedure with some scant venous bleeding. No arterial bleeding or hematoma formation, minimal tenderness to palpation. No overlying crepitus or infectious findings. NEURO: [No focal deficits]. Alert and oriented [x3.] PSYCH: [Normal mood and affect.] Course Vital Signs Vital signs: Vital Signs Temperature 36.9 C 10/21/24 05:13 Pulse Rate 77 10/21/24 05:13 Respiratory Rate 18 10/21/24 05:13 Blood Pressure 140/76 10/21/24 05:13 Pulse Oximetry 95 10/21/24 05:13 Oxygen Delivery Room Air 10/21/24 05:13 Temperature 36.9 C 10/21/24 05:13 Pulse Rate 77 10/21/24 05:13 Respiratory Rate 18 10/21/24 05:13 Blood Pressure 140/76 10/21/24 05:13 Pulse Oximetry 95 10/21/24 05:13 Oxygen Delivery Room Air 10/21/24 05:13 MDM - Extremity Injury (Lower) MDM Narrative Medical decision making narrative: 74-year-old female presenting to the emergency department for evaluation of some bleeding from her right leg wound that was a result of her Mohs procedure with her manager inventory management yesterday. There is a circular 1.0 cm lesion to the anterior right cortés distally that was from patient's Mohs procedure with some scant venous bleeding. No arterial bleeding or hematoma formation, minimal tenderness to palpation. No overlying crepitus or infectious findings. 1 g of TXA was placed on to gauze and placed directly into wound with direct pressure for hemostasis and re-evaluated afterwards. Patient was reexamined and had decent hemostasis but still slight ooze. Surgicel 2 x 3 dressing applied over top and gauze applied with Coban pressure dressing with good hemostasis. Patient is satisfied and bleeding has stopped. She will follow-up with regular doctor and will follow the wound care instructions that she was discharged with yesterday. Patient given return precautions and paperwork. Medical Records Attestation: I reviewed the patient's medical records. Discharge Plan Discharge Clinical Impression: Post-op bleeding Patient Disposition: Home Condition: Stable Instructions: Antibiotic Form Additional Instructions: We have put some medicated gauze on your wound to help stop the bleeding. Change the dressing tomorrow after applying warm water to soak the gauze and remove the bandages. If you have any persistent or worsening bleeding return to the ER or other healthcare provider. Follow-up with your regular doctors and Dermatology. Patient Language: Kittitian Prescriptions: No Action aspirin [Adult Low Dose Aspirin] 81 mg tablet,delayed release (DR/EC) 81 mg PO DAILY mirabegron [Myrbetriq] 25 mg tablet extended release 24 hr 25 mg PO DAILY Qty: 30 1RF cholecalciferol (vitamin D3) 50 mcg (2,000 unit) tablet 50 mcg PO DAILY alprazolam 0.25 mg tablet 0.25 mg PO DAILY PRN (Reason: anxiety) Qty: 30 0RF simvastatin 10 mg tablet See Rx Instructions .ROUTE .COMPLEX Qty: 90 0RF Dose Instruction: TAKE 1 TABLET BY MOUTH EVERY DAY IN THE EVENING Rx Instructions: TAKE 1 TABLET BY MOUTH EVERY DAY IN THE EVENING prednisone 20 mg tablet 40 mg PO DAILY 5 Days Qty: 10 0RF tobramycin 0.3 % drops 1 drp RIGHT EYE QID 7 Days Qty: 5 0RF Follow-up/Referrals: Manuel Hercules MD [Primary Care Provider] - Time of Disposition: 05:54
--- OUTSIDE RECORDS SUMMARY | 2024-10-21 05:33 | XMS_ITS | Encounter Summary ---
Author Organization [facility] Address [address] [place] [address] Care Team Providers Care Zone Supervisor Firearms Name Role Phone Ab Weiss DO Primary Care Provider [phone] Encounter Details Date Type Department Care Team (Latest Contact Info) Description 10/25/2005 Outpatient Historical [facility] REGINALDO Cochran, Tony Red MD NO ADDRESS ON FILE Diarrhea (Primary Dx) Social History Tobacco Use Types Packs/Day Years Used Date Smoking Tobacco: Never Assessed Comments Unknown Sex and Gender Information Value Date Recorded Sex Assigned at Female 05/03/2024 8:25 AM RN ICU Legal Sex Female 3:31 AM RN ICU Gender Identity Female 05/03/2024 8:25 AM RN ICU Sexual Orientation Not on file documented as [...] ORDERABLES Mechelle l Result Performing Organization Address [facility] Phone Number INTERFACE SYSTEM Refer to [...] ORDERABLES Mechelle l Result Performing Organization Address [facility] Phone Number INTERFACE SYSTEM Refer to clinic/hospital department * TSH (10/25/2005 11:01 AM CDT) TSH 1.43 0.27 - 4.20 uU/mL INTERFACE SYSTEM 10/25/2005 11:0 1 AM CDT Tony Cochran MD CHEMISTRY ORDERABLES Final Result Performing Organization Address [facility] Phone Number INTERFACE SYSTEM Refer to [...] classifications for lipids are available on the [facility] Intranet at: [email or web address] Select: Lab Policies and Procedures Select: Reference [...] Primary documented in this encounter Care Teams Zone Supervisor Firearms Relationship Specialty Start Date End Date Ab Weiss DO [address] [address] PCP - General Family Practice 01/14/22 documented as of this encounter
--- OUTSIDE RECORDS SUMMARY | 2024-10-21 05:33 | XMS_ITS | Clinical Summary ---
Author Organization [facility] Address [address] [place] [address] Care Team Providers Care Wellness Program Manager Name Role Phone Saji Mooney MD Primary Care Provider [phone] Allergies Active Allergy Reactions Criticality Noted Date [...] on file Legal Sex Female 3:27 PM REAMING MACHINE OPERATOR Gender Identity Not on file Sexual Orientation [...] 61.2 kg (135 lb) 05/09/2020 7:57 AM REAMING MACHINE OPERATOR Height 161.3 cm (5' 3.5) 05/09/2020 7:57 AM REAMING MACHINE OPERATOR Body Mass Index 23.54 05/09/2020 7:57 AM REAMING MACHINE OPERATOR Plan of Treatment Not on file Insurance MEDICARE ADVANTAGE MEDICARE ADVANTAGE [employer] MEDICARE Care Teams Wellness Program Manager Relationship Specialty Start Date End Date Saji Mooney MD [address] [place] [address] PCP - General Internal Medicine 04/20/19
--- OUTSIDE RECORDS SUMMARY | 2024-10-21 05:33 | XMS_ITS | Encounter Summary ---
Author Organization [facility] Address [address] [place] [address] Care Team Providers Care Caramel Candy Maker Name Role Phone Ab Weiss DO Primary Care Provider [phone] Encounter Details Date Type Department Care Team (Late st Contact Info) Description 01/03/2006 Outpatient Historical [facility] GI LAB Derrick Shabazz MD [address] [place] [address] [place] [address] Diarrhea (Primary Dx) Social History Tobacco Use Types Packs/Day Years Used Date Smoking Tobacco: Never Assessed Comments Unknown Sex and Gender Information Value Date Recorded Sex Assigned at Female 05/03/2024 8:25 AM CERTIFIED JUVENILE PROBATION OFFICER Legal Sex Female 3:31 AM CERTIFIED JUVENILE PROBATION OFFICER Gender Identity Female 05/03/2024 8:25 AM CERTIFIED JUVENILE PROBATION OFFICER Sexual Orientation Not on file documented as of this encounter Plan of Treatment Not on file documented as of this encounter Visit Diagnoses Diagnosis Diarrhea- Primary documented in this encounter Care Teams Caramel Candy Maker Relationship Specialty Start Date End Date Ab Weiss DO [address] [address] PCP - General Family Practice 01/14/22 documented as of this encounter
--- OUTSIDE RECORDS SUMMARY | 2024-10-21 05:33 | XMS_ITS | Encounter Summary ---
Author Organization [facility] Address [address] [facility] [place] [address] Care Team Providers Care Business Intelligence Analyst Name Role Phone Lalit Arzola MD Primary Care Provider [phone] Encounter Details Date Type Department Care Team (Late st Contact Info) Description 10/05/2024 Lab Requisition [facility] - DermPath Lab [address] [facility] [place] [address] Chelsea Liu DO [address] [facility] [address] [place] [address] Social History Tobacco Use Types Packs/Day Years Used Date Smoking Tobacco: Never Smokeless Tobacco: Never Alcohol Use Standard Drinks/Week Comments Yes 0 (1 standard drink = 0.6 oz pur e alcohol) Comments Unknown Sex and Gender Information Value Date Recorded Sex Assigned at Not on file Legal Sex Female 7:08 PM TAILINGS DAM PUMPER Gender Identity Not on file Sexual Orientation Not on file documented as of this encounter Plan of Treatment Not on file documented as of this encounter Procedures Procedure Name Priority Date/Time Associated Diagnosis Comments DERMATOPATHOLOGY Routine 10/05/2024 9:50 AM CDT documented in this encounter Results * DERMATOPATHOLOGY (10/05/2024 9:50 AM CDT) Case Report Dermatopathology Report Case: [id number] Authorizing Provider: Chelsea Liu DO Collected: 10/05/2024 09:50 AM Ordering Location: [facility] - Received: 10/06/2024 08:01 AM [...] characteristic determined by the Dermatopathology Laboratory at [facility], directed by Dr. Cy Cummings. These tests need not be, and therefore are not, approved by the [place] Food and Drug Administration. The tests are used for clinical purposes. Billing Codes Specimen Charges Stain Charges 96683 [id number] [id number] 1 1 1 5 3:05 PM CDT [...] CDT 10/06/2024 8:01 AM CDT us Chelsea Liu DO LAB - PATHOLOGY/CYTOLOGY ORDERABLES Final Result DERMATOPATHOLOGY LABORATORY [facility] - Department of Dermatology Specialized Medicine [address] [place] [address], [address] [phone] documented in this encounter Visit Diagnoses Not on filedocumented in this encounter Care Teams Business Intelligence Analyst Relationship Specialty Start Date End Date Lalit Arzola MD [address] [place] [address] PCP - General 09/26/08 documented as of this encounter
--- OUTSIDE RECORDS SUMMARY | 2024-10-21 05:33 | XMS_ITS | Referral Summary ---
Author Organization [facility] Address [address] [place] [address] Care Team Providers Care Middleware Systems Architect Name Role Phone Saji Mooney MD Primary Care Provider [phone] Allergies Active Allergy Reactions Criticality Noted Date [...] on file Legal Sex Female 3:27 PM ENVIRONMENTAL FIELD OFFICE MANAGER Gender Identity Not on file Sexual Orientation Not on file Last Filed Vital Signs Vital Sign Reading Time Taken Comments Blood Pressure - - Pulse - - Temperature - - Respiratory Rate - - Oxygen Saturation - - Inhaled Oxygen Concentration - - Weight 61.2 kg (135 lb) 05/09/2020 7:57 AM ENVIRONMENTAL FIELD OFFICE MANAGER Height 161.3 cm (5' 3.5) 05/09/2020 7:57 AM ENVIRONMENTAL FIELD OFFICE MANAGER Body Mass Index 23.54 05/09/2020 7:57 AM ENVIRONMENTAL FIELD OFFICE MANAGER Plan of Treatment Not on file Insurance [facility] MEDICARE [facility]AGE [facility] MEDIC[facility] Address: [address] [address] [place] [address] [facility] MEDICARE ADVANTAGE [facility] MEDIC[facility] Address: [facility] [address] [place] [address] [facility] Care Teams Middleware Systems Architect Relationship Specialty Start Date End Date Saji Mooney MD [address] [place] [address] PCP - General Internal Medicine 04/20/19
--- OUTSIDE RECORDS SUMMARY | 2024-10-21 05:33 | XMS_ITS | Clinical Summary ---
Author Organization [facility] Address [address] [place] [address] Phone Care Team Providers Care Inspecting Supervisor Name Role Phone Ab Weiss DO Primary Care Provider [phone] Allergies Active Allergy Reactions Criticality Noted Date [...] Weiss address on file incorrect Correct Address: [address] [place] [address] Problem Noted Date Diagnosed Date S/P laparoscopic [...] Father Kayden stoner Heart Disease Maternal Grandfather Jaems Stoner No Known Problems Maternal Grandmother Heart [...] and Family Not on file 05/25/2019 Attends [employer] Services Not on file 05/25 Active Member [...] Sex Assigned at Female 05/03/2024 8:25 AM COMPUTER SYSTEMS CONSULTANT Legal Sex Female 3:31 AM COMPUTER SYSTEMS CONSULTANT Gender Identity Female 05/03/2024 8:25 AM COMPUTER SYSTEMS CONSULTANT Sexual Orientation Not on file Occupation Industry Job Start Date Job End Date Not on file Not on file Not on file Not on file Last Filed Vital Signs Vital Sign Reading Time Taken Comments Blood Pressure 116/80 04/27/2024 8:49 AM COMPUTER SYSTEMS CONSULTANT Pulse 69 04/27/2024 8:49 AM COMPUTER SYSTEMS CONSULTANT Temperature 35.9 C (96.6 F) 04/27/2024 8:49 AM COMPUTER SYSTEMS CONSULTANT Respiratory Rate 16 09/20/2021 8:00 AM CDT Oxygen Saturation 98% 04/27/2024 8:49 AM COMPUTER SYSTEMS CONSULTANT Inhaled Oxygen Concentration - - Weight 64.5 kg (142 lb 3.2 oz) 04/27/2024 8:49 A M COMPUTER SYSTEMS CONSULTANT Height 160 cm (5' 3) 04/27/2024 8:49 AM COMPUTER SYSTEMS CONSULTANT Body Mass Index 25.19 04/27/2024 8:49 AM COMPUTER SYSTEMS CONSULTANT Plan of Treatment Health Maintenance Due Date [...] , 03/06/2015 Medical Devices Implanted Type Area Store Sales Manager Device Identifier Shelf Expiration Date Model / Serial / Lot Sealant Fibrin Vistaseal 10ml Vst10 - [id number] Implanted:Qty: 1 on 09/19/2021 by Hayes Durbin MD at [facility] Sealant N/A: Pelvis [employer] 10/01/2022 VST10 / [id number] / [id number] Hip Replacement Procedures Procedure Name Priority Date/Time Associated Diagnosis Comments XR DEXA BONE DENSITY AXIAL 1 OR MORE SITES Routine 06/26/2022 10:07 AM COMPUTER SYSTEMS CONSULTANT Screening for osteoporosis Menopause MAMMO DIAGNOSTIC UNI LEFT W OR WO CAD Routine 08/07/2021 ENDOSCOPY, COLON, SCREENING Routine 03/27/2016 from Last 3 Months or Most Recently Relevant to Health Maintenance Results * XR DEXA BONE DENSITY AXIAL 1 OR MORE SITES (06/26/2022 10:07 AM COMPUTER SYSTEMS CONSULTANT) Anatomical Region Laterality Modality Digital Radiogra phy 06/26/2022 10:0 8 AM COMPUTER SYSTEMS CONSULTANT Narrative 06/26/2022 10:21 AM COMPUTER SYSTEMS CONSULTANT XR DEXA BONE DENSITY AXIAL 1 OR MORE SITES DATE: 06/26/2022 10:07 AM HISTORY: 71 years old Female with post menopausal symptoms. PROCEDURE: Planar images of the lumbar spine, forearm and hip(s) using a [employer] DEXA scanner for bone mineral density determination [...] Golden DO DICTATION LOCATION: Location 1 - [facility] Procedure Note John Golden DO - 06/26/2022 XR DEXA BONE DENSITY AXIAL 1 OR MORE SITES DATE: 06/26/2022 10:07 AM HISTORY: 71 years old Female with post menopausal symptoms. PROCEDURE: Planar images of the lumbar spine, forearm and hip(s) using a [employer] DEXA scanner for bone mineral density determination [...] Golden DO DICTATION LOCATION: Location 1 - [facility] Charito Moeller DO DIAGNOSTIC IMAGING ORDERABLES F inal Result * MAMMO DIAGNOSTIC UNI LEFT W OR WO CAD (08/07/2021) Anatomical Region Laterality Modality Breast Left Mammography Charito Moeller DO MAMMO ORDERABLES Edited Result - Final * ENDOSCOPY, COLON, SCREENING (03/27/2016) Derrick Shabazz MD GI PROCEDURE ORDERABLES Edite d Result - Final Performing Organization Address City/State/[facility] Co de Phone Number [facility] from Last 3 Months or Most Recently Relevant to Health Maintenance Insurance AETNA PPO MCR RX OPTUM RX Member Subscriber Plan / Payer (Ef fective 2015-Present) Name:Alondra Rose Relation to Subscriber:Self Name:Young, Alondra H Payer ID:Not on file Group ID:[id number] Type:RX Medicare Part D Address: [place] Advance Directives For more information, please contact: [phone] * Full Code (Latest Code Status on File) Date Activated Date Inactivated Comments 09/19/2021 12:50 PM 09/20/2021 12:12 PM * Full Code Date Activated Date Inactivated Comments 09/19/2021 7:22 AM 09/19/2021 12:50 PM Care Teams Inspecting Supervisor Relationship Specialty Start Date End Date Ab Weiss DO [address] [address] PCP - General Family Practice 01/14/22
--- OUTSIDE RECORDS SUMMARY | 2024-10-21 05:33 | XMS_ITS | Clinical Summary ---
Author Organization [facility] Address [address] [place] [address] Care Team Providers Care Industrial Gas Service Helper Name Role Phone Lalit Arzola MD Primary Care Provider [phone] Source Comments [facility],non-owned Affiliates and Associated Physician Practices is amultiple site organization consisting of ambulatory clinics and hospital sitesin [place], [place], [place] and [place]. This disclosure is being madepursuant to the Care Everywhere program and may not contain all information available regarding this patient. Last updated 18.[facility] Active Problems Problem Noted Date Diagnosed Date Actinic keratosis 04/17/2010 Encounters Date Type Department Care Team Description 10/05/2024 Lab Requisition [facility] - DermPath Lab [address] [facility], [place] [place] [address] Chelsea Liu DO from Last 3 Months [...] on file Legal Sex Female 7:08 PM PORTABLE MACHINE CUTTER Gender Identity Not on file Sexual Orientation [...] AM CDT) Case Report Dermatopathology Report Case: [id number] Authorizing Provider: Chelsea Liu DO Collected: 10/05/2024 09:50 AM Ordering Location: [facility] - Received: 10/06/2024 08:01 [...] characteristic determined by the Dermatopathology Laboratory at [facility], directed by Dr. Cy Cummings. These tests need not be, and therefore are not, approved by the [place] Food and Drug Administration. The tests are used for clinical purposes. Billing Codes Specimen Charges Stain Charges [id number] 1 1 1 5 3:05 PM CDT [...] PATHOLOGY/CYTOLOGY ORDERABLES Final Result Performing Organization Address City/State/[facility] Co de Phone Number DERMATOPATHOLOGY LABORATORY [facility] - Department of Dermatology [facility] Specialized Medicine [address] [place] [address], [address] Floor [address] [phone] from Last 3 Months Insurance AETNA MEDICARE ADV Care Teams Industrial Gas Service Helper Relationship Specialty Start Date End Date Lalit Arzola MD [address] [place] [address] [facility] - General 09/26/08
[2024-10-21 06:00] VITALS: BP 134/62; PULSE 65; RESP 18; O2SAT 94
== END 2024-10-21 06:02 | disposition home or self-care (01) ==
PROVIDERS: Emergency Provider Student in an Organized Health Care Education/Training Program; PCP Internal Medicine
DX: L76.21 Postprocedural hemorrhage of skin and subcutaneous tissue following a dermatologic procedure (principal); E78.5 Hyperlipidemia, unspecified
CPT/HCPCS: 99283

== ENCOUNTER 2024-11-16 07:18 | Outpatient (CLI) | payer MEDICARE, SELFPAY ==
--- OUTSIDE RECORDS SUMMARY | 2024-11-16 07:22 | XMS_ITS | Clinical Summary ---
Author Organization [facility] Address [address] [place] [address] Care Team Providers Care Decontamination Worker Name Role Phone Saji Mooney MD Primary Care Provider [phone] Allergies Active Allergy Reactions Criticality Noted Date [...] on file Legal Sex Female 3:27 PM COMPACTING MACHINE OPERATOR/TENDER Gender Identity Not on file Sexual Orientation [...] 61.2 kg (135 lb) 05/09/2020 7:57 AM COMPACTING MACHINE OPERATOR/TENDER Height 161.3 cm (5' 3.5) 05/09/2020 7:57 AM COMPACTING MACHINE OPERATOR/TENDER Body Mass Index 23.54 05/09/2020 7:57 AM COMPACTING MACHINE OPERATOR/TENDER Plan of Treatment Not on file Insurance MEDICARE ADVANTAGE MEDICARE ADVANTAGE AETNA MEDICARE Care Teams Decontamination Worker Relationship Specialty Start Date End Date Saji Mooney MD [address] [place] [address] PCP - General Internal Medicine 04/20/19
--- OUTSIDE RECORDS SUMMARY | 2024-11-16 07:22 | XMS_ITS | Encounter Summary ---
Author Organization [facility] Address [address] [facility] [place] [address] Care Team Providers Care Crown Blocker Name Role Phone Lalit Arzola MD Primary Care Provider Encounter Details Date Type Department Care Team (Late st Contact Info) Description 10/05/2024 Lab Requisition [facility] - DermPath Lab [address] [facility] [place] [address] Chelsea Liu DO [address] [facility] [address] [place] [address] Social History Tobacco Use Types Packs/Day Years Used Date Smoking Tobacco: Never Smokeless Tobacco: Never Alcohol Use Standard Drinks/Week Comments Yes 0 (1 standard drink = 0.6 oz pur e alcohol) Comments Unknown Sex and Gender Information Value Date Recorded Sex Assigned at Not on file Legal Sex Female 7:08 PM SPECIAL ORDER JEWELER Gender Identity Not on file Sexual Orientation Not on file documented as of this encounter Plan of Treatment Not on file documented as of this encounter Procedures Procedure Name Priority Date/Time Associated Diagnosis Comments DERMATOPATHOLOGY Routine 10/05/2024 9:50 AM CDT documented in this encounter Results * DERMATOPATHOLOGY (10/05/2024 9:50 AM CDT) Case Report Dermatopathology Report Case: [id number] Authorizing Provider: Chelsea Liu DO Collected: 10/05/2024 09:50 AM Ordering Location: [facility] - Received: 10/06/2024 08:01 [...] characteristic determined by the Dermatopathology Laboratory at [facility], directed by Dr. Cy Cummings. These tests need not be, and therefore are not, approved by the [place] Food and Drug Administration. The tests are used for clinical purposes. Billing Codes Specimen Charges Stain Charges [id number] 1 1 1 5 3:05 PM CDT [...] - PATHOLOGY/CYTOLOGY ORDERABLES Final Result DERMATOPATHOLOGY LABORATORY [facility] - Department of Dermatology [facility] Specialized Medicine [address] [place] [address], [address] [phone] documented in this encounter Visit Diagnoses Not on filedocumented in this encounter Care Teams Crown Blocker Relationship Specialty Start Date End Date Lalit Arzola MD [address] [place] [address] PCP - General 09/26/08 documented as of this encounter
--- OUTSIDE RECORDS SUMMARY | 2024-11-16 07:22 | XMS_ITS | Patient Health Record ---
Author Organization [facility] Address [address] [facility] [address] [place] [address] Care Team Providers Care General Operations Agent Name Role Phone Sammie MARTIN, Tony Red Primary Care Provider Yesi Derrick Del Real Unavailable [phone] Reason For Referral No Information Problems Problem Type SNOMED Code ICD Code Onset Dates Problem Status W/U Status Risk Notes Problem [id number] Colon cancer screening (Z12.11) Active confirmed Plan Of Treatment No Information Insurance Providers Payer Name Payer Address Payer Phone Subscriber Number Group Number Insured Name Patient Relationship to Insured Coverage Start Date Coverage End Date [facility] Medicare Advantage HMO [address] [address] [place] [address] [phone] [id number] Alondra Rose Self - patient is the insured
--- OUTSIDE RECORDS SUMMARY | 2024-11-16 07:22 | XMS_ITS | Referral Summary ---
Author Organization [facility] Address [address] [place] [address] Care Team Providers Care Hydrogen Treater Name Role Phone Saji Mooney MD Primary Care Provider [phone] Allergies Active Allergy Reactions Criticality Noted Date [...] on file Legal Sex Female 3:27 PM PC SUPPORT SPECIALIST Gender Identity Not on file Sexual Orientation Not on file Last Filed Vital Signs Vital Sign Reading Time Taken Comments Blood Pressure - - Pulse - - Temperature - - Respiratory Rate - - Oxygen Saturation - - Inhaled Oxygen Concentration - - Weight 61.2 kg (135 lb) 05/09/2020 7:57 AM PC SUPPORT SPECIALIST Height 161.3 cm (5' 3.5) 05/09/2020 7:57 AM PC SUPPORT SPECIALIST Body Mass Index 23.54 05/09/2020 7:57 AM PC SUPPORT SPECIALIST Plan of Treatment Not on file Insurance [facility] MEDICARE ADVANTAGE [facility] MEDICARE ADVANTAGE [facility] MEDICARE Care Teams Hydrogen Treater Relationship Specialty Start Date End Date Saji Mooney MD [address] [place] [address] PCP - General Internal Medicine 04/20/19
--- OUTSIDE RECORDS SUMMARY | 2024-11-16 07:22 | XMS_ITS | Clinical Summary ---
Author Organization [facility] Address [address] [facility] [place] [address] Care Team Providers Care Diagnostic Imaging Manager Name Role Phone Lalit Arzola MD Primary Care Provider [phone] Source Comments [facility],non-owned Affiliates and Associated Physician Practices is amultiple site organization consisting of ambulatory clinics and hospital sitesin [place], [place], [place] and [place]. This disclosure is being madepursuant to the Care Everywhere program and may not contain all information available regarding this patient. Last updated 18.[facility] Active Problems Problem Noted Date Diagnosed Date Actinic keratosis 04/17/2010 Encounters Date Type Department Care Team Description 10/05/2024 Lab Requisition [facility] - DermPath Lab [address] [facility] [place] [place], [place] [address] Chelsea Liu DO from Last 3 Months [...] on file Legal Sex Female 7:08 PM SPEECH CORRECTION ASSISTANT Gender Identity Not on file Sexual [...] AM CDT) Case Report Dermatopathology Report Case: [id number] Authorizing Provider: Chelsea Liu DO Collected: 10/05/2024 09:50 AM Ordering Location: [facility] - Received: 10/06/2024 08:01 [...] characteristic determined by the Dermatopathology Laboratory at [facility], directed by Dr. Cy Cummings. These tests need not be, and therefore are not, approved by the [place] Food and Drug Administration. The tests are used for clinical purposes. Billing Codes Specimen Charges Stain Charges [id number] 1 1 1 5 3:05 PM CDT [...] PATHOLOGY/CYTOLOGY ORDERABLES Final Result Performing Organization Address City/State/[facility] Co de Phone Number DERMATOPATHOLOGY LABORATORY [facility] - Department of Dermatology [facility] Specialized Medicine [address] [place] [address], [address] [phone] from Last 3 Months Insurance AETNA MEDICARE ADV Care Teams Diagnostic Imaging Manager Relationship Specialty Start Date End Date Lalit Arzola MD [address] [place] [address] [facility] - General 09/26/08
--- OUTSIDE RECORDS SUMMARY | 2024-11-16 07:22 | XMS_ITS | Encounter Summary ---
Author Organization [facility] Address [address] [place] [address] Care Team Providers Care Test Fixture Designer Name Role Phone Ab Weiss DO Primary Care Provider [phone] Encounter Details Date Type Department Care Team (Latest Contact Info) Description 10/25/2005 Outpatient Historical [facility] REGIN[facility]DO Cochran, Tony Red MD NO ADDRESS ON FILE Diarrhea (Primary Dx) Social History Tobacco Use Types Packs/Day Years Used Date Smoking Tobacco: Never Assessed Comments Unknown Sex and Gender Information Value Date Recorded Sex Assigned at Female 05/03/2024 8:25 AM RECREATION PROGRAMMER Legal Sex Female 3:31 AM RECREATION PROGRAMMER Gender Identity Female 05/03/2024 8:25 AM RECREATION PROGRAMMER Sexual Orientation Not on file documented as [...] ORDERABLES Mechelle l Result Performing Organization Address [facility] Phone Number INTERFACE SYSTEM Refer to [...] ORDERABLES Mechelle l Result Performing Organization Address [facility] Phone Number INTERFACE SYSTEM Refer to clinic/hospital department * TSH (10/25/2005 11:01 AM CDT) TSH 1.43 0.27 - 4.20 uU/mL INTERFACE SYSTEM 10/25/2005 11:0 1 AM CDT Tony Cochran MD CHEMISTRY ORDERABLES Final Result Performing Organization Address [facility] Phone Number INTERFACE SYSTEM Refer to [...] classifications for lipids are available on the [facility] Intranet at: [email or web address] Select: Lab Policies and Procedures Select: Reference [...] Primary documented in this encounter Care Teams Test Fixture Designer Relationship Specialty Start Date End Date Ab Weiss DO [address] [address] PCP - General Family Practice 01/14/22 documented as of this encounter
--- OUTSIDE RECORDS SUMMARY | 2024-11-16 07:22 | XMS_ITS | Clinical Summary ---
Author Organization [facility] Address [address] [place] [address] Phone Care Team Providers Care Administrative Technician Name Role Phone Ab Weiss DO Primary Care Provider Allergies Active Allergy Reactions Criticality Noted Date [...] Weiss address on file incorrect Correct Address: [address] [place] [address] Problem Noted Date Diagnosed Date S/P laparoscopic [...] Encounters Date Type Department Care Team Description 11/09/2024 External Device Data STL ABSTRACTION Provider, Abstract 11/02/2024 External Device Data ST[facility] ABSTRACTION Provider, Abstract 10/12/2024 External Device Data ST[facility] ABSTRACTION Provider, [...] Neg Hx Relation Name Status Comments Brother Mitlu Stoner Father Kayden stoner Maternal Grandfather James [...] and Family Not on file 05/25/2019 Attends Christian Services Not on file 05/25 Active Member [...] Sex Assigned at Female 05/03/2024 8:25 AM AGRICULTURAL ENGINEERING TECHNOLOGIST Legal Sex Female 3:31 AM AGRICULTURAL ENGINEERING TECHNOLOGIST Gender Identity Female 05/03/2024 8:25 AM AGRICULTURAL ENGINEERING TECHNOLOGIST Sexual Orientation Not on file Occupation Industry Job Start Date Job End Date Not on file Not on file Not on file Not on file Last Filed Vital Signs Vital Sign Reading Time Taken Comments Blood Pressure 116/80 04/27/2024 8:49 AM AGRICULTURAL ENGINEERING TECHNOLOGIST Pulse 69 04/27/2024 8:49 AM AGRICULTURAL ENGINEERING TECHNOLOGIST Temperature 35.9 C (96.6 F) 04/27/2024 8:49 AM AGRICULTURAL ENGINEERING TECHNOLOGIST Respiratory Rate 16 09/20/2021 8:00 AM CDT Oxygen Saturation 98% 04/27/2024 8:49 AM AGRICULTURAL ENGINEERING TECHNOLOGIST Inhaled Oxygen Concentration - - Weight 64.5 kg (142 lb 3.2 oz) 04/27/2024 8:49 A M AGRICULTURAL ENGINEERING TECHNOLOGIST Height 160 cm (5' 3) 04/27/2024 8:49 AM AGRICULTURAL ENGINEERING TECHNOLOGIST Body Mass Index 25.19 04/27/2024 8:49 AM AGRICULTURAL ENGINEERING TECHNOLOGIST Plan of Treatment Health Maintenance Due Date Last Done Comments FIT-DNA Q 3 years 1994 FIT/FOBT Q 1 year 1994 Flex Sig/CT Colonography Q 5 years 1994 ZOSTER VACCINE (3 of 3) 10/13/2017 08/18/2017, 02/16 INFLUENZA VACCINE (#1) 2023 , 02/13/2020, 02/15/2019, Additional history exists COVID-19 Vaccine (4 - 2023-2 5 season) 2024 03/14/2021, 07/20/2020, [...] , 03/06/2015 Medical Devices Implanted Type Area Sales Service Rep Device Identifier Shelf Expiration Date Model / Serial / Lot Sealant Fibrin Vistaseal 10ml Vst10 - [id number] Implanted:Qty: 1 on 09/19/2021 by Hayes Durbin MD at [facility] Sealant N/A: Pelvis [employer] 10/01/2022 VST10 / [id number] / [id number] Hip Replacement Procedures Procedure Name Priority Date/Time Associated Diagnosis Comments XR DEXA BONE DENSITY AXIAL 1 OR MORE SITES Routine 06/26/2022 10:07 AM AGRICULTURAL ENGINEERING TECHNOLOGIST Screening for osteoporosis Menopause MAMMO DIAGNOSTIC UNI LEFT W OR WO CAD Routine 08/07/2021 ENDOSCOPY, COLON, SCREENING Routine 03/27/2016 from Last 3 Months or Most Recently Relevant to Health Maintenance Results * XR DEXA BONE DENSITY AXIAL 1 OR MORE SITES (06/26/2022 10:07 AM AGRICULTURAL ENGINEERING TECHNOLOGIST) Anatomical Region Laterality Modality Digital Radiogra phy 06/26/2022 10:0 8 AM AGRICULTURAL ENGINEERING TECHNOLOGIST Narrative 06/26/2022 10:21 AM AGRICULTURAL ENGINEERING TECHNOLOGIST XR DEXA BONE DENSITY AXIAL 1 OR MORE SITES DATE: 06/26/2022 10:07 AM HISTORY: 71 years old Female with post menopausal symptoms. PROCEDURE: Planar images of the lumbar spine, forearm and hip(s) using a [employer] DEXA scanner for bone mineral density determination [...] Golden DO DICTATION LOCATION: Location 1 - [facility] Procedure Note John Golden DO - 06/26/2022 XR DEXA BONE DENSITY AXIAL 1 OR MORE SITES DATE: 06/26/2022 10:07 AM HISTORY: 71 years old Female with post menopausal symptoms. PROCEDURE: Planar images of the lumbar spine, forearm and hip(s) using a [employer] DEXA scanner for bone mineral density determination [...] Golden DO DICTATION LOCATION: Location 1 - [facility] Charito Cazares Sultanadeni DO DIAGNOSTIC IMAGING ORDERABLES F inal Result * MAMMO DIAGNOSTIC UNI LEFT W OR WO CAD (08/07/2021) Anatomical Region Laterality Modality Breast Left Mammography Charito Moeller DO MAMMO ORDERABLES Edited Result - Final * ENDOSCOPY, COLON, SCREENING (03/27/2016) Derrick Shabazz MD GI PROCEDURE ORDERABLES Edite d Result - Final [facility] from Last 3 Months or Most Recently Relevant to Health Maintenance Insurance AETNA PPO MCR RX [employer]UM RX Member Subscriber Plan / Payer (Ef fective 2015-Present) Name:Alondra Rose Relation to Subscriber:Self Name:Alondra Rose Payer ID:Not on file Group ID:[id number] Type:RX Medicare Part D [facility] Advance Directives For more information, please contact: [phone] * Full Code (Latest Code Status on File) Date Activated Date Inactivated Comments 09/19/2021 12:50 PM 09/20/2021 12:12 PM * Full Code Date Activated Date Inactivated Comments 09/19/2021 7:22 AM 09/19/2021 12:50 PM Care Teams Administrative Technician Relationship Specialty Start Date End Date Ab Weiss DO [address] [address] PCP - General Family Practice 01/14/22
--- OUTSIDE RECORDS SUMMARY | 2024-11-16 07:22 | XMS_ITS | Encounter Summary ---
Author Organization [facility] Address [address] [place] [address] Care Team Providers Care Power Truck Driver Name Role Phone Ab Weiss DO Primary Care Provider [phone] Encounter Details Date Type Department Care Team (Late st Contact Info) Description 01/03/2006 Outpatient Historical HIS [facility] Derrick Shabazz MD [address] [place] [address] [place] [address] Diarrhea (Primary Dx) Social History Tobacco Use Types Packs/Day Years Used Date Smoking Tobacco: Never Assessed Comments Unknown Sex and Gender Information Value Date Recorded Sex Assigned at Female 05/03/2024 8:25 AM AUDIO PRODUCTION INSTRUCTOR Legal Sex Female 3:31 AM AUDIO PRODUCTION INSTRUCTOR Gender Identity Female 05/03/2024 8:25 AM AUDIO PRODUCTION INSTRUCTOR Sexual Orientation Not on file documented as of this encounter Plan of Treatment Not on file documented as of this encounter Visit Diagnoses Diagnosis Diarrhea- Primary documented in this encounter Care Teams Power Truck Driver Relationship Specialty Start Date End Date Ab Weiss DO [address] [address] PCP - General Family Practice 01/14/22 documented as of this encounter
--- OUTSIDE RECORDS SUMMARY | 2024-11-16 07:22 | XMS_ITS | Data Portability ---
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 [email or web address] Not available 08/10/2023 23:05:55 Plan of Treatment Reminders Order Date Submit Date Provider Last Modified By Organization Details Last Modified Time Details Appointments None recorded. Lab pathology, skin 2019 020 [facility], [address], [place], [address], 0 10:45:18 pathology, skin 2019 020 [facility]), [place], [address], 0 10:40:42 Referral None recorded. Procedures None recorded. Surgeries None recorded. Imaging None recorded. Medication Orders ketoconazo le 2 % shampoo 2023 024 [facility][id number], [address], [place], [id number], 4 13:46:38 Keflex 500 mg capsule [email or web address] [id number], [address], [place], [id number], 16:30:04 Patient TargetsNo targets recorded. Patient InstructionsNo instructions recorded. Reason for Referral None Reported. Results Created Date Observation Date Name Description Value Unit Range Abnormal Flag Note LastModifiedBy Organization Detail LastModifiedTime Result Notes None recorded. Problems Name Problem SNOMED Code Status Onset Date Resolution Date Notes Provider Name and Address Organization Details Recorded Time Basal cell carcinoma of skin 543554263 Active 02/2022 R medial inferior eyelid-Hol ds Alondra Madison MD [address] [place] [address], [address], [address], HOLL[facility] Madison MD 4 13:36:35 Squamous cell carcinoma of skin 573093919 Active 06/2023 at least SCCIS R medial distal pretibital region-Hru za Alondra Madison MD [address] [place] [address], [address] [place] [address], [place], [address], HOLLI Madison MD 4 13:40:48 Seborrheic dermatitis 53510127 Active 2023 Alondra Madison MD [address] [place] [address], [facility] [address], [place], [address], HOLLI Madison MD 4 13:47:18 Actinic keratosis 467248540 Active 2016 Alondra Madison MD [address] [place] [address], [place] [address], [place], [address], HOLLI Madison MD 7 23:22:24 Herpes simplex 08055273 Active 2016 Alondra Madison MD [address] [place] [address], [address], [address], HOLLI Madison MD 7 16:26:03 Problem Notes None recorded. Procedures Surgical History Date Name Laterality Status Provider Name and Address Organization Details Recorded Time 4 Cryosurgery aks completed Alondra Madison MD [address] [facility], [address], [place], [address], HOLLI Madison MD 08/10/2023 23:06:02 2 Cryosurgery aks completed Alondra Madison MD [address] [place] [address], [address], [place], [address], HOLLI Madison MD 02/24/2022 21:38:27 2 Cryosurgery benign lesions 1 completed Alondra Madison MD [address] [place] [address], [address], [place], [address], HOLLI Madison MD 02/24/2022 21:38:13 0 Shave Biopsy single completed Fabio Madison MD 01/11/2020 10:46:49 0 Cryosurgery aks completed Alondra Madison MD [address] [place] [address], [address], [place], [address], HOLLI Madison MD 01/08/2020 23:09:53 0 Shave Biopsy single completed Loreto Madison MD 01/04/2020 10:46:25 9 Cryosurgery benign lesions 1 completed Alondra Madison MD [address] [place] [address], [address], [place], [address], HOLLI Madison MD 04/25/2019 16:51:29 9 Cryosurgery benign lesions 1 completed Alondra Madison MD [address] [place] [address], [address], [place], [address], HOLLI Madison MD 03/14/2019 18:26:31 7 Biopsy completed Alondra Madison MD [address] [place] [address], [address], [place], [address], HOLLI Madison MD 03/29/2017 19:10:54 7 Cryosurgery aks completed Alondra Madison MD [address] [place] [address], [address], [place], [address], HOLLI Madison MD 03/29/2017 19:10:01 7 Cryosurgery benign lesions 1 completed Alondra Madison MD [address] [place] [address], [address], [place], [address], HOLLI Madison MD 03/29/2017 19:10:35 Imaging Results None recorded. Procedure Notes None recorded. Medical Equipment None Reported. Allergies Allergen ID Allergen Name Allergen Category Reaction Reaction Severity Criticality Documentation Date Start Date Code Code System Note Provider Name and Address Organization Details Recorded Time 1611 latex environme nt,medica tion Not available Not available Not available 02/04/2017 00201 91 RxNorm HO[facility]I Pope MD 7 12:56:26 [...] Not Available Not Available Not Available Transderm-S jacquard card cutter 1 mg over 3 days transdermal patch [...] Available Not Available Not Available Fluzone High-Dose 7001-3892 (PF) 180 mcg/0.5 mL intramuscul ar syringe 02/04 completed Not Available Not Available Not Available Fluzone High-Dose 2466-4507 (PF) 180 mcg/0.5 mL intramuscul ar syringe 03/11 completed Not Available Not Available Not Available Shingrix (PF) 50 mcg/0.5 mL intramuscul ar suspension, kit 03/11 completed Not Available Not Available Not Available Fluzone High-Dose 1894-5582 (PF) 180 mcg/0.5 mL intramuscul ar syringe [...] not available 01/04/2020 Sunscreen Use Routinely Yes [email or web address] Information not available 02/18/2022 Sun Exposure Frequent [email or web address] Information not available 02/18/2022 Does Patient Have Any Fever, Cough, Sore Throat Or New Shortness Of Breath? No Information not available 01/04/2020 Tanning Bed Exposure No [email or web address] Information not available 02/18/2022 What Was The Date Of Your Most Recent Tobacco Screening? 02/18/2022 [email or web address] Information not available 02/18/2022 Sun Exposure Frequent [...] N Defibrillator N Cancer N Stroke N Asthma N Hypothyroidism N Lupus N HIV/AIDS N Pacemaker N Psoriasis N Anemia N Hepatitis N Heart Disease N Hypertension N Gynecological HistoryNo gynecological history recorded. Obstetrics History GPAL:G 0 P 0 0 0 0 Past Encounters Encounter ID Performer Location Encounter Start Date Encounter Closed Date Diagnosis/Indication Diagnosis SNOMED-CT Code Diagnosis ICD10 Code Diagnosis Note [id number] Alondra Madison MD Main Office [address] [place] [address] 02/04/2017 11:47:17 02/04/2017 13:32:10 Neoplasm of uncertain behavior of skin 78064042 D48.5 Senile hyperkeratosis 39 5801426 L82.1 [id number] Alondra Madison MD Main Office [address] [address] 03/25/2017 11:56:11 03/25/2017 12:38:44 Neoplasm of uncertain behavior of skin 93893848 D48.5 Actinic keratosis 220473 007 L57.0 Melanocyti c nevus of trunk 632664510 D22.5 Melanocyti c nevus of skin of thigh 019965506 D22.72 [id number] Alondra Madison MD Main Office [address] [place] [address] 04/07/2017 14:58:39 04/07/2017 16:59:39 Infection of skin 576133012 L08.9 Allergic c ontact dermatitis 957153968 L23.9 [id number] Alondra Madison MD Main Office [address] [place] [address] 03/11/2019 11:04:27 03/11/2019 12:20:22 Inflamed seborrheic keratosis 982953694 L82.0 Actinic keratosis 007 L57.0 Insect bit e, nonvenomous, of foot 050918426 S90.862A Telangiect kenisha of skin of face 219913919 I78.1 [id number] Alondra Madison MD Main Office [address] [place] [address] 04/20/2019 13:59:44 04/20/2019 15:21:34 Inflamed seborrheic keratosis 780191022 L82.0 Postinflam matory skin pigmentation change 76471428 L81.8 [id number] Alondra Madison MD Main Office [address] [place] [address] 01/04/2020 09:48:11 01/04/2020 10:44:22 Neoplasm of uncertain behavior of skin 62657894 D48.5 Actinic keratosis 941007 007 L57.0 Inflamed s eborrheic keratosis 482511943 L82.0 Melanocyti c nevus of trunk 929612165 D22.5 [id number] Alondra Madison MD Main Office [address] [place] [address] 01/11/2020 10:14:50 01/11/2020 10:46:30 Neoplasm of uncertain behavior of skin 51110554 D48.5 [id number] Alondra Madison MD Main Office [address] [place] [address] 02/18/2022 15:55:23 02/18/2022 16:56:59 Inflamed seborrheic keratosis 881942429 L82.0 Actinic keratosis 497911 007 L57.0 Senile hyperkeratosis 39 2776880 L82.1 Melanocyti c nevus of trunk 012758918 D22.5 [id number] Alondra Madsion MD Main Office [address] [place] [address] [address] [place] [address] 08/04/2023 12:15:40 08/04/2023 13:20:38 Seborrheic dermatitis 19678257 L21.8 Superficia l injury of scalp 425977113 S00.00XA Seborrheic keratosis 394 012426 L82.1 Actinic keratosis 007 L57.0 Health Concerns Section Related Observation LastModified by Organization Detai ls LastModified Time None Recorded Concern Status LastModified by Organization Details LastModified Time None Recorded Advance Directives Directive None Recorded Payers Insurance Date Sequence Insurance Name Policy Number Policy Gibbs Covered Member ID Gibbs Member ID Guarantor Name 07/14/2023 1 [facility] (MEDICARE REPLACEMENT/ ADVANTAGE - PPO) [id number] Alondra Rose [id number] Alondra Rose 08/11/2023 1 [employer] (MEDICARE REPLACEMENT/ ADVANTAGE - PPO) [id number] Alondra Rose [id number] Alondra Rose Notes Date Note Type Note Provider Name and Address Organization Details Recorded Time 04/20/2019 text/html efudex follow up site to treat: forearms/dorsal handsstarted: 03/16/19stopped: 03/30/19pt states forearms are kind of blistering--not sure if efudex workedshe did have crusting and in those areas has pink scaly areas also the spot on the L cheek is better after LN but still theregets irritated and picks at the area she notes she did have a fbse last [place] in [place] when she was thereshe is due this summer for next fbse. Alondra Madison MD [address] [facility], [address], [place], [address], [facility]LLI Madison MD 04/25/2019 16:51:56 01/04/2020 text/html COVID-19 protoco l. Pt waited in car prior to [...] don't want to heal. Alondra Madison MD [address] [place] [address], [address], [place], [address], HOLLI Madison MD 01/08/2020 23:10:37 01/11/2020 text/html COVID-19 protoco l. Pt waited in car prior to [...] looks okno known concerns. Alondra Madison MD [address] [facility], [address], [place], [address], HOLLI Madison MD 01/12/2020 23:40:12 02/18/2022 text/html [...] don't want to heal. Alondra Madison MD [address] [facility], [address], [place], [address], HOLLI Madison MD 02/24/2022 21:39:31 08/04/2023 text/html Spot check top of head[place] LN [place] treated mid-Junealso treated with 5FU cream to the area on the top of the scalp BID x 2 weeks starting 2 [address] treatmentcrusted area therewondering if needs a biopsy as she is concerned with the new SCC recently diagnosed in [place] on the R leg whole scalp itchesno [...] the leg SCC Alondra Madison MD [address] [facility], [address], [place], [address], HOLLI Madison MD 08/10/2023 23:07:09 OBGyn Episode No OBEpisode recorded.
[2024-11-16 08:11] LABS: Add Urine Microscopic? YES; Appearance Urine Cloudy (Clear); Glucose Urine UA Negative (Negative); Leukocyte Esterase Ur 2+ LEU/UL (Negative); Nitrate Urine Positive (Negative); Non Pathogenic Casts 0-2; Specific Grav Ur 1.009 (1.001-1.035)
== END 2024-11-16 07:19 | disposition home or self-care (01) ==
LOC: ANHLAB 07:20
PROVIDERS: PCP Internal Medicine; Visit Provider Internal Medicine
DX: R30.0 Dysuria (principal); N39.0 Urinary tract infection, site not specified; R82.90 Unspecified abnormal findings in urine
CPT/HCPCS: 81001; 87086; 87186

== ENCOUNTER 2025-01-24 08:54 | Outpatient (CLI) | payer MEDICARE, SELFPAY ==
--- NOTE | ~2025-01-24 | CT_ITS ---
CT ABDOMEN AND PELVIS WITHOUT AND WITH CONTRAST Clinical History: N39.0 - Urinary tract infection, site not specified Comparison: None Technique: Unenhanced and enhanced images lung bases to symphysis pubis IV contrast information not listed in PACS Coronal, sagittal reformats CT images acquired with automatic exposure control for dose reduction DLP: 927 mGy-cm Findings: Without intravenous contrast, sensitivity for detecting visceral parenchymal abnormalities decreased. Lung bases: Clear. Visualized heart and pericardium: Unremarkable. Liver: Cyst segment 2. Tiny probable cyst segment 7. Gallbladder: Unremarkable. Spleen: Unremarkable. Pancreas: Unremarkable. Adrenal glands: Unremarkable. Kidneys: Symmetric enhancement, and excretion. Ureteral opacification throughout. Right kidney- No hydronephrosis. 1 mm stone. Left kidney- No hydronephrosis. No renal stones. Distal esophagus/stomach: Unremarkable. Small bowel loops: Normal caliber and wall thickness. Colon: Diverticula. Normal caliber and wall thickness. Normal appendix but within right upper quadrant. Nodes: No enlarged nodes. Peritoneum: No ascites. No free intraperitoneal air. Urinary bladder: Unremarkable. Uterus: Removed. Adnexa: No masses. Bones: No acute bony abnormality. Soft tissues: Unremarkable. Unopacified abdominal aorta: No aneurysmal dilatation. IMPRESSION: 1. No acute findings. 2. Probable 1 mm stone right kidney. No hydronephrosis. Reviewed, dictated and finalized at location R.
--- OUTSIDE RECORDS SUMMARY | 2025-01-24 09:05 | XMS_ITS | Clinical Summary ---
Author Organization [facility] Address [address] [facility] [address] Care Team Providers Care Leather Cutter Name Role Phone Lalit Arzola MD Primary Care Provider [phone] Source Comments [facility],non-owned Affiliates and Associated Physician Practices is amultiple site organization consisting of ambulatory clinics and hospital sitesin [place], [place], [place] and [place]. This disclosure is being madepursuant to the Care Everywhere program and may not contain all information available regarding this patient. 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
--- OUTSIDE RECORDS SUMMARY | 2025-01-24 09:05 | XMS_ITS | Encounter Summary ---
Author Organization [facility] Address [address] [place] [address] Care Team Providers Care Rubber Flap Cutter Name Role Phone Ab Weiss DO Primary Care Provider [phone] Encounter Details Date Type Department Care Team (Latest Contact Info) Description 10/25/2005 Outpatient Historical [facility] REGINALDO Cochran, Tony Red MD NO ADDRESS ON FILE Diarrhea (Primary Dx) Social History Tobacco Use Types Packs/Day Years Used Date Smoking Tobacco: Never Assessed Comments Unknown Sex and Gender Information Value Date Recorded Sex Assigned at Female 05/03/2024 8:25 AM RESIDENT CARE DIRECTOR Legal Sex Female 3:31 AM RESIDENT CARE DIRECTOR Gender Identity Female 05/03/2024 8:25 AM RESIDENT CARE DIRECTOR Sexual Orientation Not on file documented as [...] ORDERABLES Mechelle l Result Performing Organization Address [facility] Phone Number INTERFACE SYSTEM Refer to clinic/hospital [...] ORDERABLES Mechelle l Result Performing Organization Address [facility] Phone Number INTERFACE SYSTEM Refer to clinic/hospital department * TSH (10/25/2005 11:01 AM CDT) TSH 1.43 0.27 - 4.20 uU/mL INTERFACE SYSTEM 10/25/2005 11:0 1 AM CDT Tony Cochran MD CHEMISTRY ORDERABLES Final Result Performing Organization Address [facility] Phone Number INTERFACE SYSTEM Refer to clinic/hospital [...] classifications for lipids are available on the [facility] Intranet at: [email or web address] worcesterHarmony Information Systemsatrium health [facility]achet/[email or web address] Select: Lab Policies and Procedures Select: Reference [...] Primary documented in this encounter Care Teams Rubber Flap Cutter Relationship Specialty Start Date End Date Ab Weiss DO [address] [address] PCP - General Family Practice 01/14/22 documented as of this encounter
--- OUTSIDE RECORDS SUMMARY | 2025-01-24 09:05 | XMS_ITS | Encounter Summary ---
Author Organization [facility] Address [address] [place] [address] Care Team Providers Care Plug Making Operator Name Role Phone Ab Weiss DO Primary Care Provider [phone] Encounter Details Date Type Department Care Team (Late st Contact Info) Description 01/03/2006 Outpatient Historical HIS [facility] Derrick Shabazz MD [address] [place] [address] [place] [address] Diarrhea (Primary Dx) Social History Tobacco Use Types Packs/Day Years Used Date Smoking Tobacco: Never Assessed Comments Unknown Sex and Gender Information Value Date Recorded Sex Assigned at Female 05/03/2024 8:25 AM BOOK SEWING MACHINE OPERATOR Legal Sex Female 3:31 AM BOOK SEWING MACHINE OPERATOR Gender Identity Female 05/03/2024 8:25 AM BOOK SEWING MACHINE OPERATOR Sexual Orientation Not on file documented as of this encounter Plan of Treatment Not on file documented as of this encounter Visit Diagnoses Diagnosis Diarrhea- Primary documented in this encounter Care Teams Plug Making Operator Relationship Specialty Start Date End Date Ab Weiss DO [address] [address] PCP - General Family Practice 01/14/22 documented as of this encounter
--- OUTSIDE RECORDS SUMMARY | 2025-01-24 09:05 | XMS_ITS | Clinical Summary ---
Author Organization [facility] Address [address] [place] [address] Care Team Providers Care Knit Goods Washer Name Role Phone Saji Mooney MD Primary Care Provider [phone] Allergies Active Allergy Reactions Criticality Noted Date [...] on file Legal Sex Female 3:27 PM SPA CONSULTANT Gender Identity Not on file Sexual Orientation [...] 61.2 kg (135 lb) 05/09/2020 7:57 AM SPA CONSULTANT Height 161.3 cm (5' 3.5) 05/09/2020 7:57 AM SPA CONSULTANT Body Mass Index 23.54 05/09/2020 7:57 AM SPA CONSULTANT Plan of Treatment Not on file Insurance MEDICARE ADVANTAGE MEDICARE ADVANTAGE AETNA MEDICARE Care Teams Knit Goods Washer Relationship Specialty Start Date End Date Saji Mooney MD [address] [place] [address] PCP - General Internal Medicine 04/20/19
--- OUTSIDE RECORDS SUMMARY | 2025-01-24 09:05 | XMS_ITS | Encounter Summary ---
Author Organization [facility] Address [address] [place] [address] Care Team Providers Care Steam Hoist Operator Name Role Phone Lalit Arzola MD Primary Care Provider Encounter Details Date Type Department Care Team (Late st Contact Info) Description 10/05/2024 Lab Requisition [facility] - DermPath Lab [address] [facility], [place] [address] Chelsea Liu DO [address] [facility] [address] [place] [address] Social History Tobacco Use Types Packs/Day Years Used Date Smoking Tobacco: Never Smokeless Tobacco: Never Alcohol Use Standard Drinks/Week Comments Yes 0 (1 standard drink = 0.6 oz pur e alcohol) Comments Unknown Sex and Gender Information Value Date Recorded Sex Assigned at Not on file 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 Gender Identity Not on file Sexual Orientation Not on file documented as of this encounter Plan of Treatment Not on file documented as of this encounter Procedures Procedure Name Priority Date/Time Associated Diagnosis Comments DERMATOPATHOLOGY Routine 10/05/2024 9:50 AM CDT documented in this encounter Results * DERMATOPATHOLOGY (10/05/2024 9:50 AM CDT) Case Report Dermatopathology Report Case: [id number] Authorizing Provider: Chelsea Liu DO Collected: 10/05/2024 09:50 AM Ordering Location: [facility] - Received: 10/06/2024 08:01 [...] characteristic determined by the Dermatopathology Laboratory at [facility], directed by Dr. Cy Cummings. These tests need not be, and therefore are not, approved by the [place] Food and Drug Administration. The tests are used for clinical purposes. Billing Codes Specimen Charges Stain Charges 46156 91404 40094 1 1 1 5 3:05 PM CDT [...] - PATHOLOGY/CYTOLOGY ORDERABLES Final Result DERMATOPATHOLOGY LABORATORY [facility] - Department of Dermatology [facility] [address] [place] [address], [address] [phone] documented in this encounter Visit Diagnoses Not on filedocumented in this encounter Care Teams Steam Hoist Operator Relationship Specialty Start Date End Date Lalit Arzola MD [address] [place] [address] PCP - General 09/26/08 documented as of this encounter
--- OUTSIDE RECORDS SUMMARY | 2025-01-24 09:05 | XMS_ITS | Clinical Summary ---
Author Organization [facility] Address [address] [place] [address] Phone Care Team Providers Care Ash Conveyor Operator Name Role Phone Ab Weiss DO [...] Weiss address on file incorrect Correct Address: [address] [place] [address] Problem Noted Date Diagnosed Date S/P laparoscopic [...] Encounters Date Type Department Care Team Description 12/01/2024 External Device Data ST[facility] ABSTRACTION Provider, Abstract 11/30/2024 External Device Data STL ABSTRACTION Provider, Abstract 11/09/2024 External Device Data ST[facility] ABSTRACTION Provider, [...] and Family Not on file 05/25/2019 Attends Scientologist Services Not on file 05/25 Active Member [...] Sex Assigned at Female 05/03/2024 8:25 AM DATA MINER Legal Sex Female 3:31 AM DATA MINER Gender Identity Female 05/03/2024 8:25 AM DATA MINER Sexual Orientation Not on file Occupation Industry Job Start Date Job End Date Not on file Not on file Not on file Not on file Last Filed Vital Signs Vital Sign Reading Time Taken Comments Blood Pressure 116/80 04/27/2024 8:49 AM DATA MINER Pulse 69 04/27/2024 8:49 AM DATA MINER Temperature 35.9 C (96.6 F) 04/27/2024 8:49 AM DATA MINER Respiratory Rate 16 09/20/2021 8:00 AM CDT Oxygen Saturation 98% 04/27/2024 8:49 AM DATA MINER Inhaled Oxygen Concentration - - Weight 64.5 kg (142 lb 3.2 oz) 04/27/2024 8:49 A M DATA MINER Height 160 cm (5' 3) 04/27/2024 8:49 AM DATA MINER Body Mass Index 25.19 04/27/2024 8:49 AM DATA MINER Plan of Treatment Health Maintenance Due Date Last Done Comments FIT-DNA Q 3 years 1994 FIT/FOBT Q 1 year 1994 Flex Sig/CT Colonography Q 5 years 1994 ZOSTER VACCINE (3 of 3) 10/13/2017 08/18/2017, 02/16 OSTEOPOROSIS SCREENING 06/26/2024 3, 10/31/2016, 02/28/2014, Additional history exists BREAST CANCER SCREENING 06/30/2024 06/30/19 24, 06/30/2023, 08/07/2021, Additional history exists RSV VACCINE (60+ or ) (1 - 1-dose 75+ series) 2024 INFLUENZA VACCINE (#1) 2024 , 02/13/2020, 02/15/2019, Additional history exists COVID-19 Vaccine ( - 2024-2 6 season) 2025 03/14/2021, 07/20/2020, 06/22/2020 COLORECTAL SCREENING 03/27/2026 03/27/2016, 01/03/2006, 01/03/2006 Colorectal Cancer Screening 03/27/2026 DTAP/TDAP/TD VACCINES (4 - T d or Tdap) 11/17/2028 11/17/2018, 08/25/2015, 10/30/2005 PNEUMOCOCCAL VACCINE 50+ YEARS Completed 02/17/2016 , 03/06/2015 Medical Devices Implanted Type Area Medical Record Librarians Teacher Device Identifier Shelf Expiration Date Model / Serial / Lot Sealant Fibrin Vistaseal 10ml Vst10 - [id number] Implanted:Qty: 1 on 09/19/2021 by Hayes Durbin MD at [facility] Sealant N/A: Pelvis [employer] 10/01/2022 VST10 / [id number] / [id number] Hip Replacement Procedures Procedure Name Priority Date/Time Associated Diagnosis Comments XR DEXA BONE DENSITY AXIAL 1 OR MORE SITES Routine 06/26/2022 10:07 AM DATA MINER Screening for osteoporosis Menopause MAMMO DIAGNOSTIC UNI LEFT W OR WO CAD Routine 08/07/2021 ENDOSCOPY, COLON, SCREENING Routine 03/27/2016 from Last 3 Months or Most Recently Relevant to Health Maintenance Results * XR DEXA BONE DENSITY AXIAL 1 OR MORE SITES (06/26/2022 10:07 AM DATA MINER) Anatomical Region Laterality Modality Digital Radiogra phy 06/26/2022 10:0 8 AM DATA MINER Narrative 06/26/2022 10:21 AM DATA MINER XR DEXA BONE DENSITY AXIAL 1 OR MORE SITES DATE: 06/26/2022 10:07 AM HISTORY: 71 years old Female with post menopausal symptoms. PROCEDURE: Planar images of the lumbar spine, forearm and hip(s) using a [employer] DEXA scanner for bone mineral density determination [...] Golden DO DICTATION LOCATION: Location 1 - [facility] Procedure Note John Golden DO - 06/26/2022 XR DEXA BONE DENSITY AXIAL 1 OR MORE SITES DATE: 06/26/2022 10:07 AM HISTORY: 71 years old Female with post menopausal symptoms. PROCEDURE: Planar images of the lumbar spine, forearm and hip(s) using a Sai [employer] DEXA scanner for bone mineral density determination [...] Golden DO DICTATION LOCATION: Location 1 - [facility] Charito Moeller DO DIAGNOSTIC IMAGING ORDERABLES F inal Result * MAMMO DIAGNOSTIC UNI LEFT W OR WO CAD (08/07/2021) Anatomical Region Laterality Modality Breast Left Mammography Charito Cazares Sultanadeni DO MAMMO ORDERABLES Edited Result - Final [...] Advance Directives For more information, please contact: [phone] * Full Code (Latest Code Status on File) Date Activated Date Inactivated Comments 09/19/2021 12:50 PM 09/20/2021 12:12 PM * Full Code Date Activated Date Inactivated Comments 09/19/2021 7:22 AM 09/19/2021 12:50 PM Care Teams Ash Conveyor Operator Relationship Specialty Start Date End Date Ab Weiss DO [address] [address] PCP - General Family Practice 01/14/22
--- OUTSIDE RECORDS SUMMARY | 2025-01-24 09:05 | XMS_ITS | Patient Health Record ---
Author Organization [facility] Address [address] [facility]. [address] [place] [address] Care Team Providers Care Admitting Manager Name Role Phone Sammie MARTIN, Tony Red Primary Care Provider Yesi Derrick Del Real Unavailable [phone] Reason For Referral No Information Problems Problem Type SNOMED Code ICD Code Onset Dates Problem Status W/U Status Risk Notes Problem [id number] Colon cancer screening (Z12.11) Active confirmed Plan Of Treatment No Information Insurance Providers Payer Name Payer Address Payer Phone Subscriber Number Group Number Insured Name Patient Relationship to Insured Coverage Start Date Coverage End Date [facility] Medicare Advantage HMO [address] [address] [place] [address] [phone] [id number] Alondra Rose Self - patient is the insured
[2025-01-24 09:21] LABS: Estimated Glomerular Filt Rate > 60
== END 2025-01-24 08:55 | disposition home or self-care (01) ==
LOC: ANHIMG 08:56
PROVIDERS: PCP Internal Medicine; Visit Provider Internal Medicine
DX: R31.9 Hematuria, unspecified (principal); N39.0 Urinary tract infection, site not specified; R82.998 Other abnormal findings in urine
CPT/HCPCS: 74178; Q9967

== ENCOUNTER 2025-03-21 12:24 | Outpatient (CLI) | payer MEDICARE, SELFPAY ==
--- NOTE | ~2025-03-21 | XR_ITS ---
EXAMINATION: XR wrist RT min 3V, 03/21/2025 12:35 SLAB WORKER HISTORY: M79.643 - Pain in unspecified hand COMPARISON: No comparisons available. Findings: There is a remote corticated fracture arising from the dorsal aspect of the lunate, no acute fracture is identified Severe degenerative changes of the distal scaphoid articulations. Soft tissue swelling. Impression: No acute fracture or malalignment. Reviewed, dictated and finalized at location P. WORKER Impression: No acute fracture or malalignment.
--- NOTE | ~2025-03-21 | XR_ITS ---
EXAMINATION: XR hand RT min 3V, 03/21/2025 12:35 GERMAN PROFESSOR HISTORY: PT STATES SHE HAS A HARD TIME GRIPING THINGS COMPARISON: No comparisons available. Findings: No acute fracture or malalignment. There are moderate severe degenerative changes of the distal interphalangeal joints with moderate degenerative changes of the first metacarpal carpal joint, small erosions are noted. Soft tissues unremarkable. Impression: No acute fracture or malalignment. Reviewed, dictated and finalized at location P. AN PROFESSOR Impression: No acute fracture or malalignment.
--- OUTSIDE RECORDS SUMMARY | 2025-03-21 13:41 | XMS_ITS | Encounter Summary ---
Author Organization [facility] Address [address] [place] [address] Care Team Providers Care Quality Control Inspector Heading Name Role Phone Ab Weiss DO Primary Care Provider [phone] Encounter Details Date Type Department Care Team (Latest Contact Info) Description 10/25/2005 Outpatient Historical [facility] REGINALDO Cochran, Tony Red MD NO ADDRESS ON FILE Diarrhea (Primary Dx) Social History Tobacco Use Types Packs/Day Years Used Date Smoking Tobacco: Never Assessed Comments Unknown Sex and Gender Information Value Date Recorded Sex Assigned at Female 05/03/2024 8:25 AM DYNAMO REPAIRER Legal Sex Female 3:31 AM DYNAMO REPAIRER Gender Identity Female 05/03/2024 8:25 AM DYNAMO REPAIRER Sexual Orientation Not on file documented as [...] ORDERABLES Mechelle l Result Performing Organization Address [facility] [address] [facility] Phone Number INTERFACE SYSTEM Refer to clinic/hospital [...] ORDERABLES Mechelle l Result Performing Organization Address [facility] [address]/[facility] Phone Number INTERFACE SYSTEM Refer to clinic/hospital department * TSH (10/25/2005 11:01 AM CDT) TSH 1.43 0.27 - 4.20 uU/mL INTERFACE SYSTEM 10/25/2005 11:0 1 AM CDT Tony Cochran MD CHEMISTRY ORDERABLES Final Result Performing Organization Address [facility] [address]/[facility] Phone Number INTERFACE SYSTEM Refer to clinic/hospital [...] classifications for lipids are available on the [facility] Intranet at: [email or web address] Select: Lab Policies and Procedures Select: Reference [...] Primary documented in this encounter Care Teams Quality Control Inspector Heading Relationship Specialty Start Date End Date Ab Weiss DO [address] [address] PCP - General Family Practice 01/14/22 documented as of this encounter
--- OUTSIDE RECORDS SUMMARY | 2025-03-21 13:41 | XMS_ITS | Encounter Summary ---
Author Organization [facility] Address [address] [place] [address] Care Team Providers Care Manufacturing Technologist Name Role Phone Ab Weiss DO Primary Care Provider [phone] Encounter Details Date Type Department Care Team (Late st Contact Info) Description 01/03/2006 Outpatient Historical [facility] Derrick Shabazz MD [address] [place] [address] [place] [address] Diarrhea (Primary Dx) Social History Tobacco Use Types Packs/Day Years Used Date Smoking Tobacco: Never Assessed Comments Unknown Sex and Gender Information Value Date Recorded Sex Assigned at Female 05/03/2024 8:25 AM VARNISHER APPRENTICE Legal Sex Female 3:31 AM VARNISHER APPRENTICE Gender Identity Female 05/03/2024 8:25 AM VARNISHER APPRENTICE Sexual Orientation Not on file documented as of this encounter Plan of Treatment Not on file documented as of this encounter Visit Diagnoses Diagnosis Diarrhea- Primary documented in this encounter Care Teams Manufacturing Technologist Relationship Specialty Start Date End Date Ab Weiss DO [address] [address] PCP - General Family Practice 01/14/22 documented as of this encounter
--- OUTSIDE RECORDS SUMMARY | 2025-03-21 13:41 | XMS_ITS | Patient Health Record ---
Author Organization [employer] Address [address] [facility]. [address] [place] [address] Care Team Providers Care Motorcoach Driver Name Role Phone Sammie MARTIN, Tony Red Primary Care Provider Yesi Derrick Del Real Unavailable [phone] Reason For Referral No Information Problems Problem Type SNOMED Code ICD Code Onset Dates Problem Status W/U Status Risk Notes Problem Colon cancer screening ([id number]) Colon cancer screening (Z12.11) Active confirmed Plan Of Treatment No Information Insurance Providers Payer Name Payer Address Payer Phone Subscriber Number Group Number Insured Name Patient Relationship to Insured Coverage Start Date Coverage End Date [facility] Medicare Advantage HMO [address] [address] [place] [address] [id number] Alondra Rose Self - patient is the insured
--- OUTSIDE RECORDS SUMMARY | 2025-03-21 13:41 | XMS_ITS | Clinical Summary ---
Author Organization [facility] Address [address] [facility] [place] [address] Care Team Providers Care Paper Cup Handle Machine Operator Name Role Phone Lalit Arzola MD Primary Care Provider [phone] Source Comments [facility],non-owned Affiliates and Associated Physician Practices is amultiple site organization consisting of ambulatory clinics and hospital sitesin [place], [place], [place] and [place]. This disclosure is being madepursuant to the Care Everywhere program and may not contain all information available regarding this patient. 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
--- OUTSIDE RECORDS SUMMARY | 2025-03-21 13:41 | XMS_ITS | Clinical Summary ---
Author Organization [facility] Address [address] [place] [address] Phone Care Team Providers Care Oracle Financials Developer Name Role Phone Ab Weiss DO Primary Care Provider [phone] Allergies Active Allergy Reactions Criticality Noted Date [...] Weiss address on file incorrect Correct Address: [address] [place] [address] Problem Noted Date Diagnosed Date S/P laparoscopic [...] Encounters Date Type Department Care Team Description 03/09/2025 External Device Data [facility] ABSTRACTION Provider, Abstract 03/08/2025 External Device Data [facility] ABSTRACTION Provider, Abstract 02/08/2025 External Device Data [facility] ABSTRACTION Provider, Abstract 02/01/2025 External Device Data [facility] ABSTRACTION Provider, Abstract [...] and Family Not on file 05/25/2019 Attends Mosque Services Not on file 05/25 Active Member [...] Sex Assigned at Female 05/03/2024 8:25 AM COMPOSITION FLOOR SETTER Legal Sex Female 3:31 AM COMPOSITION FLOOR SETTER Gender Identity Female 05/03/2024 8:25 AM COMPOSITION FLOOR SETTER Sexual Orientation Not on file Occupation Industry Job Start Date Job End Date Not on file Not on file Not on file Not on file Last Filed Vital Signs Vital Sign Reading Time Taken Comments Blood Pressure 116/80 04/27/2024 8:49 AM COMPOSITION FLOOR SETTER Pulse 69 04/27/2024 8:49 AM COMPOSITION FLOOR SETTER Temperature 35.9 C (96.6 F) 04/27/2024 8:49 AM COMPOSITION FLOOR SETTER Respiratory Rate 16 09/20/2021 8:00 AM CDT Oxygen Saturation 98% 04/27/2024 8:49 AM COMPOSITION FLOOR SETTER Inhaled Oxygen Concentration - - Weight 64.5 kg (142 lb 3.2 oz) 04/27/2024 8:49 A M COMPOSITION FLOOR SETTER Height 160 cm (5' 3) 04/27/2024 8:49 AM COMPOSITION FLOOR SETTER Body Mass Index 25.19 04/27/2024 8:49 AM COMPOSITION FLOOR SETTER Plan of Treatment Health Maintenance Due Date [...] , 03/06/2015 Medical Devices Implanted Type Area Supervisor Powdered Metal Device Identifier Shelf Expiration Date Model / Serial / Lot Sealant Fibrin Vistaseal 10ml Vst10 - [id number] Implanted:Qty: 1 on 09/19/2021 by Hayes Durbin MD at [facility] Sealant N/A: Pelvis [employer] 10/01/2022 VST10 / [id number] / [id number] Hip Replacement Procedures Procedure Name Priority Date/Time Associated Diagnosis Comments XR DEXA BONE DENSITY AXIAL 1 OR MORE SITES Routine 06/26/2022 10:07 AM COMPOSITION FLOOR SETTER Screening for osteoporosis Menopause MAMMO DIAGNOSTIC UNI LEFT W OR WO CAD Routine 08/07/2021 ENDOSCOPY, COLON, SCREENING Routine 03/27/2016 from Last 3 Months or Most Recently Relevant to Health Maintenance Results * XR DEXA BONE DENSITY AXIAL 1 OR MORE SITES (06/26/2022 10:07 AM COMPOSITION FLOOR SETTER) Anatomical Region Laterality Modality Digital Radiogra phy 06/26/2022 10:0 8 AM COMPOSITION FLOOR SETTER Narrative 06/26/2022 10:21 AM COMPOSITION FLOOR SETTER XR DEXA BONE DENSITY AXIAL 1 OR MORE SITES DATE: 06/26/2022 10:07 AM HISTORY: 71 years old Female with post menopausal symptoms. PROCEDURE: Planar images of the lumbar spine, forearm and hip(s) using a [employer] DEXA scanner for bone mineral density determination [...] Golden DO DICTATION LOCATION: Location 1 - [facility] Procedure Note John Golden DO - 06/26/2022 XR DEXA BONE DENSITY AXIAL 1 OR MORE SITES DATE: 06/26/2022 10:07 AM HISTORY: 71 years old Female with post menopausal symptoms. PROCEDURE: Planar images of the lumbar spine, forearm and hip(s) using a [employer] DEXA scanner for bone mineral density determination [...] Golden DO DICTATION LOCATION: Location 1 - [facility] Charito Moeller DO DIAGNOSTIC IMAGING ORDERABLES [...] Advance Directives For more information, please contact: [phone] * Full Code (Latest Code Status on File) Date Activated Date Inactivated Comments 09/19/2021 12:50 PM 09/20/2021 12:12 PM * Full Code Date Activated Date Inactivated Comments 09/19/2021 7:22 AM 09/19/2021 12:50 PM Care Teams Oracle Financials Developer Relationship Specialty Start Date End Date Ab Weiss DO [address] [address] PCP - General Family Practice 01/14/22
--- OUTSIDE RECORDS SUMMARY | 2025-03-21 13:41 | XMS_ITS | Encounter Summary ---
Author Organization [facility] Address [address] [facility] [place] [address] Care Team Providers Care Clerical Dentist Assistant Name Role Phone Lalit Arzola MD Primary Care Provider Encounter Details Date Type Department Care Team (Late st Contact Info) Description 10/05/[address] 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 - Received: 10/06/2024 08:01 AM [...] characteristic determined by the Dermatopathology Laboratory at [facility], directed by Dr. Cy Cummings. These tests need not be, and therefore are not, approved by the [place] Food and Drug Administration. The tests are used for clinical purposes. Billing Codes Specimen Charges Stain Charges 62997 [id number] 1 1 1 5 3:05 PM CDT [...] - PATHOLOGY/CYTOLOGY ORDERABLES Final Result DERMATOPATHOLOGY LABORATORY [facility] - Department of Dermatology Specialized Medicine [address] [place] [address], [address] [phone] documented in this encounter Visit Diagnoses Not on filedocumented in this encounter Care Teams Clerical Dentist Assistant Relationship Specialty Start Date End Date Lalit Arzola MD [address] [place] [address] PCP - General 09/26/08 documented as of this encounter
--- OUTSIDE RECORDS SUMMARY | 2025-03-21 13:41 | XMS_ITS | Clinical Summary ---
Author Organization [facility] Address [address] [place] [address] Care Team Providers Care Registered Appraiser Name Role Phone Saji Mooney MD Primary Care Provider [phone] Allergies Active Allergy Reactions Criticality Noted Date [...] on file Legal Sex Female 3:27 PM BULB GRADER Gender Identity Not on file Sexual Orientation [...] 61.2 kg (135 lb) 05/09/2020 7:57 AM BULB GRADER Height 161.3 cm (5' 3.5) 05/09/2020 7:57 AM BULB GRADER Body Mass Index 23.54 05/09/2020 7:57 AM BULB GRADER Plan of Treatment Not on file Insurance MEDICARE ADVANTAGE [facility] Address: [address] [address] MEDICARE ADVANTAGE [facility] Address: [address] [address] [employer] MEDICARE Care Teams Registered Appraiser Relationship Specialty Start Date End Date Saji Mooney MD [address] [place] [address] PCP - General Internal Medicine 04/20/19
== END 2025-03-21 12:25 | disposition home or self-care (01) ==
PROVIDERS: PCP Internal Medicine; Visit Provider Internal Medicine
DX: M79.641 Pain in right hand (principal); M79.644 Pain in right finger(s)
CPT/HCPCS: 73110; 73130

== ENCOUNTER 2025-03-28 15:26 | Outpatient (CLI) | payer MEDICARE, SELFPAY ==
--- NOTE | ~2025-03-28 | MR_ITS ---
EXAM/PROCEDURE: MR brain/brain stem wo/w con HISTORY: R41.3 - Other amnesia COMPARISON: None available. TECHNIQUE: Pre and postcontrast enhanced multiplanar brain MRI performed FINDINGS: Mild diffuse volume loss and chronic blood vessel ischemic white matter changes. No acute ischemic event or restricted diffusion. No abnormal enhancing lesions or pathology identified on postcontrast series. Brainstem and cerebellum are unremarkable. Vascular flow voids patent the skull base. Periorbital paranasal caliber structures unremarkable. IMPRESSION: No acute ischemic event, mass or hemorrhage. Chronic appearing changes as above. Reviewed, dictated and finalized at location A. ORY MAINTENANCE TECHNICIAN IMPRESSION: No acute ischemic event, mass or hemorrhage. Chronic appearing changes as above .
--- OUTSIDE RECORDS SUMMARY | 2025-03-28 15:31 | XMS_ITS | Clinical Summary ---
Author Organization [facility] Address [address] [place] [address] Phone Care Team Providers Care Four Corner Former Machine Operator Name Role Phone Ab Weiss DO Primary Care Provider [phone] Allergies Active Allergy Reactions Criticality Noted Date [...] Weiss address on file incorrect Correct Address: [address] [place] [id number] Problem Noted Date Diagnosed Date S/P laparoscopic [...] and Family Not on file 05/25/2019 Attends [employer] Not on file 05/25 Active Member [...] Sex Assigned at Female 05/03/2024 8:25 AM PIPEFITTER HELPER Legal Sex Female 3:31 AM PIPEFITTER HELPER Gender Identity Female 05/03/2024 8:25 AM PIPEFITTER HELPER Sexual Orientation Not on file Occupation Industry Job Start Date Job End Date Not on file Not on file Not on file Not on file Last Filed Vital Signs Vital Sign Reading Time Taken Comments Blood Pressure 116/80 04/27/2024 8:49 AM PIPEFITTER HELPER Pulse 69 04/27/2024 8:49 AM PIPEFITTER HELPER Temperature 35.9 C (96.6 F) 04/27/2024 8:49 AM PIPEFITTER HELPER Respiratory Rate 16 09/20/2021 8:00 AM CDT Oxygen Saturation 98% 04/27/2024 8:49 AM PIPEFITTER HELPER Inhaled Oxygen Concentration - - Weight 64.5 kg (142 lb 3.2 oz) 04/27/2024 8:49 A M PIPEFITTER HELPER Height 160 cm (5' 3) 04/27/2024 8:49 AM PIPEFITTER HELPER Body Mass Index 25.19 04/27/2024 8:49 AM PIPEFITTER HELPER Plan of Treatment Health Maintenance Due Date [...] , 03/06/2015 Medical Devices Implanted Type Area Lap Checker Device Identifier Shelf Expiration Date Model / Serial / Lot Sealant Fibrin Vistaseal 10ml Vst10 - [id number] Implanted:Qty: 1 on 09/19/2021 by Hayes Durbin MD at [facility] Sealant N/A: Pelvis [employer] 10/01/2022 VST10 / [id number] / [id number] Hip Replacement Procedures Procedure Name Priority Date/Time Associated Diagnosis Comments XR DEXA BONE DENSITY AXIAL 1 OR MORE SITES Routine 06/26/2022 10:07 AM PIPEFITTER HELPER Screening for osteoporosis Menopause MAMMO DIAGNOSTIC UNI LEFT W OR WO CAD Routine 08/07/2021 ENDOSCOPY, COLON, SCREENING Routine 03/27/2016 from Last 3 Months or Most Recently Relevant to Health Maintenance Results * XR DEXA BONE DENSITY AXIAL 1 OR MORE SITES (06/26/2022 10:07 AM PIPEFITTER HELPER) Anatomical Region Laterality Modality Digital Radiogra phy 06/26/2022 10:0 8 AM PIPEFITTER HELPER Narrative 06/26/2022 10:21 AM PIPEFITTER HELPER XR DEXA BONE DENSITY AXIAL 1 OR MORE SITES DATE: 06/26/2022 10:07 AM HISTORY: 71 years old Female with post menopausal symptoms. PROCEDURE: Planar images of the lumbar spine, forearm and hip(s) using a Are You a Human DEXA scanner for bone mineral density determination [...] Golden DO DICTATION LOCATION: Location 1 - [facility] Procedure Note John Golden DO - 06/26/2022 XR DEXA BONE DENSITY AXIAL 1 OR MORE SITES DATE: 06/26/2022 10:07 AM HISTORY: 71 years old Female with post menopausal symptoms. PROCEDURE: Planar images of the lumbar spine, forearm and hip(s) using a Are You a Human DEXA scanner for bone mineral density determination [...] Golden DO DICTATION LOCATION: Location 1 - [facility] Charito Moeller DO DIAGNOSTIC IMAGING ORDERABLES [...] Advance Directives For more information, please contact: [phone] * Full Code (Latest Code Status on File) Date Activated Date Inactivated Comments 09/19/2021 12:50 PM 09/20/2021 12:12 PM * Full Code Date Activated Date Inactivated Comments 09/19/2021 7:22 AM 09/19/2021 12:50 PM Care Teams Four Corner Former Machine Operator Relationship Specialty Start Date End Date Ab Weiss DO [address] [address] PCP - General Family Practice 01/14/22
--- OUTSIDE RECORDS SUMMARY | 2025-03-28 15:32 | XMS_ITS | Encounter Summary ---
Author Organization [facility] Address [address] [place] [address] Care Team Providers Care Laundry Helper Name Role Phone Lalit Arzola MD Primary Care Provider [phone] Encounter Details Date Type Department Care Team (Late st Contact Info) Description 10/05/2024 Lab Requisition [facility] - DermPath Lab [address] [facility] [place] [id number] Chelsea Liu DO [address] [facility] [address] [place] [address] Social History Tobacco Use Types Packs/Day Years Used Date Smoking Tobacco: Never Smokeless Tobacco: Never Alcohol Use Standard Drinks/Week Comments Yes 0 (1 standard drink = 0.6 oz pur e alcohol) Comments Unknown Sex and Gender Information Value Date Recorded Sex Assigned at Not on file Legal Sex Female 7:08 PM TRAFFIC 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] characteristic determined by the Dermatopathology Laboratory at [facility], directed by Dr. Cy Cummings. These tests need not be, and therefore are not, approved by the [place] Food and Drug Administration. The tests are used for clinical purposes. Billing Codes Specimen Charges Stain Charges 38193 [id number] 52004 1 1 1 5 3:05 PM CDT [...] PATHOLOGY/CYTOLOGY ORDERABLES Final Result DERMATOPATHOLOGY LABORATORY [facility] - Department of Dermatology [facility] [address] [place] [address], [address] [phone] documented in this encounter Visit Diagnoses Not on filedocumented in this encounter Care Teams Laundry Helper Relationship Specialty Start Date End Date Lalit Arzola MD [address] [place] [address] PCP - General 09/26/08 documented as of this encounter
--- OUTSIDE RECORDS SUMMARY | 2025-03-28 15:32 | XMS_ITS | Clinical Summary ---
Author Organization [facility] Address [address] [place] [address] Care Team Providers Care Representative Phlebotomy Services Name Role Phone Saji Mooney MD Primary Care Provider [phone] Allergies Active Allergy Reactions Criticality Noted Date [...] on file Legal Sex Female 3:27 PM ICE CREAM FREEZER HELPER Gender Identity Not on file Sexual Orientation [...] 61.2 kg (135 lb) 05/09/2020 7:57 AM ICE CREAM FREEZER HELPER Height 161.3 cm (5' 3.5) 05/09/2020 7:57 AM ICE CREAM FREEZER HELPER Body Mass Index 23.54 05/09/2020 7:57 AM ICE CREAM FREEZER HELPER Plan of Treatment Not on file Insurance MEDICARE ADVANTAGE MEDICARE ADVANTAGE [employer]ET[employer] MEDICARE Care Teams Representative Phlebotomy Services Relationship Specialty Start Date End Date Saji Mooney MD [address] [place] [address] PCP - General Internal Medicine 04/20/19
--- OUTSIDE RECORDS SUMMARY | 2025-03-28 15:32 | XMS_ITS | Clinical Summary ---
Author Organization [facility] Address [address] [place] [address] Care Team Providers Care Photoengraving Etcher Name Role Phone Lalit Arzola MD Primary Care Provider [phone] Source Comments [facility],non-owned Affiliates and Associated Physician Practices is amultiple site organization consisting of ambulatory clinics and hospital sitesin [place], [place], [place] and [place]. This disclosure is being madepursuant to the Care Everywhere program and may not contain all information available regarding this patient. 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
--- OUTSIDE RECORDS SUMMARY | 2025-03-28 15:32 | XMS_ITS | Encounter Summary ---
Author Organization [facility] Address [address] [place] [address] Care Team Providers Care Food Assembler Commissary Kitchen Name Role Phone Ab Weiss DO Primary Care Provider [phone] Encounter Details Date Type Department Care Team (Latest Contact Info) Description 10/25/2005 Outpatient Historical [facility] REGINALDO Cochran, Tony Red MD NO ADDRESS ON FILE Diarrhea (Primary Dx) Social History Tobacco Use Types Packs/Day Years Used Date Smoking Tobacco: Never Assessed Comments Unknown Sex and Gender Information Value Date Recorded Sex Assigned at Female 05/03/2024 8:25 AM PHOTOGRAPHER NEWS Legal Sex Female 3:31 AM PHOTOGRAPHER NEWS Gender Identity Female 05/03/2024 8:25 AM PHOTOGRAPHER NEWS Sexual Orientation Not on file documented as [...] ORDERABLES Mechelle l Result Performing Organization Address [facility] Phone Number INTERFACE SYSTEM Refer to clinic/hospital [...] ORDERABLES Mechelle l Result Performing Organization Address [facility] Phone Number INTERFACE SYSTEM Refer to clinic/hospital department * TSH (10/25/2005 11:01 AM CDT) TSH 1.43 0.27 - 4.20 uU/mL INTERFACE SYSTEM 10/25/2005 11:0 1 AM CDT Tony Cochran MD CHEMISTRY ORDERABLES Final Result Performing Organization Address [facility] Phone Number INTERFACE SYSTEM Refer to clinic/hospital [...] classifications for lipids are available on the [facility] at: [email or web address] Select: Lab Policies and Procedures Select: Reference [...] Primary documented in this encounter Care Teams Food Assembler Commissary Kitchen Relationship Specialty Start Date End Date Ab Weiss DO [address] [address] PCP - General Family Practice 01/14/22 documented as of this encounter
--- OUTSIDE RECORDS SUMMARY | 2025-03-28 15:32 | XMS_ITS | Encounter Summary ---
Author Organization [facility] Address [address] [place] [address] Care Team Providers Care Wellness Guide Name Role Phone Ab Weiss DO Primary Care Provider [phone] Encounter Details Date Type Department Care Team (Late st Contact Info) Description 01/03/2006 Outpatient Historical [facility] Derrick Shabazz MD [address] [place] [address] [place] [address] Diarrhea (Primary Dx) Social History Tobacco Use Types Packs/Day Years Used Date Smoking Tobacco: Never Assessed Comments Unknown Sex and Gender Information Value Date Recorded Sex Assigned at Female 05/03/2024 8:25 AM MATERNITY FLOOR SUPERVISOR Legal Sex Female 3:31 AM MATERNITY FLOOR SUPERVISOR Gender Identity Female 05/03/2024 8:25 AM MATERNITY FLOOR SUPERVISOR Sexual Orientation Not on file documented as of this encounter Plan of Treatment Not on file documented as of this encounter Visit Diagnoses Diagnosis Diarrhea- Primary documented in this encounter Care Teams Wellness Guide Relationship Specialty Start Date End Date Ab Weiss DO [address] [address] PCP - General Family Practice 01/14/22 documented as of this encounter
== END 2025-03-28 15:27 | disposition home or self-care (01) ==
PROVIDERS: PCP Internal Medicine; Visit Provider Internal Medicine
DX: R41.89 Other symptoms and signs involving cognitive functions and awareness (principal)
CPT/HCPCS: 70553; A9577